=== PATIENT | female | born 1985 ===

== ENCOUNTER 2025-01-21 16:02 | Emergency (ER) | payer OTHER, SELFPAY ==
--- NOTE | ~2025-01-21 | CT_ITS ---
CLINICAL HISTORY: left ureteral stone CT abdomen and pelvis without contrast Comparison: None Findings: The lung bases are clear. Gallbladder is contracted. No definite cholelithiasis. No biliary ductal dilatation. Unenhanced liver, spleen, pancreas and adrenal glands within normal limits. 2.5 cm stone in upper pole of the left kidney. 1 mm punctate stone in midpole of the left kidney and of the right kidney. Mild left hydronephrosis. No stones along the course of the left ureter. No perinephric Stranding. No bowel obstruction, pneumoperitoneum, or pneumatosis. Appendix not identified. No pericecal inflammatory changes. No free fluid. Uterus and urinary bladder within normal limits. 3.1 cm left ovarian cyst. Abdominal aorta normal in size. Small fat containing umbilical hernia. No acute fracture. IMPRESSION: 1. Mild left hydronephrosis. No obstructing ureteral stone. 2. Minimal punctate nonobstructing renal stones bilaterally. 3. Left renal and left ovarian cysts as described. This document has been electronically signed by: Bettina Pascual MD on 01/21/2025 21:38:12
--- NOTE | ~2025-01-21 | US_ITS ---
CLINICAL HISTORY: GB, CBG, liver US abdomen limited Comparison: CT/SR - CT ABDOMEN PELVIS WO IV CON - 01/21/25 20:53 EDT Findings: The pancreas, aorta, and IVC is not visualized. The liver is normal in size and echotexture. There is no intrahepatic bile duct dilatation. The common duct is 3 mm in diameter. There is a 5 mm nonmobile echogenic focus with no acoustic shadowing in the gallbladder likely small gallbladder polyp. Gallbladder wall measures 2 mm. There is no sonographic Gutierrez sign. No free fluid in right upper quadrant IMPRESSION: Likely small gallbladder polyp. Otherwise study within normal limits. This document has been electronically signed by: Bettina Pascual MD on 01/21/2025 23:20:52
[2025-01-21 16:17] VITALS: BP 119/69; PULSE 107; RESP 20; TEMP 38.1; O2SAT 97; BMI 32.8
--- NOTE | 2025-01-21 16:18 | ED_ITS ---
HPI - General Adult General Chief complaint: Abdominal Pain Stated complaint: Kidney stone? Time Seen by Provider: 01/21/25 20:32 Source: patient Limitations: no limitations History of Present Illness ED Provider: Vanesa Galvan PA-C HPI narrative: 39-year-old female with a history of kidney stones presents with left-sided low back pain since earlier this afternoon. Pain is constant and nonradiating, feels similar to prior episodes of renal colic. Associated nausea, no known fevers. Denies dysuria, active vomiting, hematuria, diarrhea. Denies mechanism of injury where she could have strained her lower back. Related Data Previous Rx's ?Medication ?Instructions ?Recorded methocarbamol 750 mg tablet 750 mg PO Q8H PRN pain, moderate 01/22/25 #14 tabs Allergies Allergy/AdvReac Type Severity Reaction Status Date / Time morphine Allergy Rash Verified 01/21/25 16:23 Review of Systems 2 Review of Systems: Yes all other systems are reviewed and are negative Constitutional: Constitutional: Denies fatigue and Denies fever(s) Cardiovascular: Cardiovascular: Denies chest pain and Denies dyspnea Respiratory: Respiratory: Denies cough and Denies dyspnea Gastrointestinal: Gastrointestinal: Reports abdominal pain, Denies diarrhea, Reports nausea and Denies vomiting Genitourinary: Genitourinary: Denies hematuria, Denies dysuria and Reports flank pain Endocrine: Endocrine: Denies fatigue PMFSH Past Medical History Attestation statement: The following information was validated with the patient. Social History Social History Smoked in Last 30 Days: No Use of substances other than those prescribed or required for medical reasons: No Advance Directives: No Advance Directives Information Provided: No Patient : No Physical Exam ED Vital Signs: Vital Signs - 24 hr 01/21/25 16:17 01/21/25 20:30 01/21/25 21:29 Temperature 100.5 F H 97.6 F 98.1 F Pulse Rate 107 H 73 74 Respiratory Rate 20 16 16 Blood Pressure 119/69 97/55 L 108/56 L Pulse Oximetry 97 97 98 Oxygen Delivery Method Room Air Room Air Room Air 01/21/25 22:08 01/21/25 22:28 01/22/25 02:09 Temperature 97.7 F Pulse Rate 68 74 72 Respiratory Rate 16 16 13 Blood Pressure 104/56 L 110/66 90/53 L Pulse Oximetry 95 Oxygen Delivery Method Room Air BMI result Body Mass Index 32.8 Const Other: Alert Orientation/consciousness: patient oriented x3 Resp Effort & Inspection: normal respiratory effort Cardio Other: Normal peripheral perfusion GI Other: No palpable pain within the abdomen, soft, nondistended no guarding Back/Spine/Pelvis Other: Minimal CVA tenderness on the left Skin Other: Warm dry no rash Neuro General: patient oriented x3, gait normal, no focal motor deficits and CN's II- XI intact bilaterally Psych Other: Cooperative Course Course Course Narrative: 01/21/25 1618 SEE Fowler This is a Rapid Medical Examination (RME) performed by Berhane Matthews PA-C in triage. Full HPI, ROS, assessment and treatment plan per primary provider in the Main ED. Hx: 39 yo F here for eval of L flank pain PE/vitals: uncomfortable appearing, tachy, temp 100.5F Plan: labs, UA, tylenol given in triage Reevaluation(s) Reevaluation #1: At 9:46 p.m. on January 21 a sepsis focused exam was performed, patient was febrile earlier, she received Tylenol with a weight based IV fluids, lactic not elevated, ordering ceftriaxone Time: 21:46 Medications Administered Discontinued Medications Generic Name Dose Route Start Last Admin Trade Name Freq PRN Reason Stop Dose Admin Acetaminophen 975 mg 01/21/25 16:22 01/21/25 16:25 Acetaminophen 325 Mg Tablet PO 01/21/25 16:23 975 mg ONCE ONE Administration Acetaminophen 975 mg 01/21/25 20:33 01/21/25 20:53 Acetaminophen 325 Mg Tablet PO 01/21/25 20:34 Not Given ONCE ONE Ceftriaxone Sodium 2 gm 01/21/25 21:46 01/21/25 22:07 Ceftriaxone Sodium 2 Gm Vial IVPUSH 01/21/25 21:47 2 gm ONCE ONE Administration Sodium Chloride 2,289 mls @ 2,289 mls/hr 01/21/25 20:33 01/21/25 22:04 Ns 30 ml/kg infuse over 1 hr (2289 ml) 01/21/25 21:32 Infused IV Infusion .Q1H STA Ketorolac Tromethamine 15 mg 01/21/25 20:33 01/21/25 21:02 Ketorolac Tromethamine 15 Mg/Ml Vial IVPUSH 01/21/25 20:34 15 mg ONCE ONE Administration Methocarbamol 1,500 mg 01/21/25 23:42 01/22/25 00:30 Methocarbamol 750 Mg Tablet PO 01/21/25 23:43 1,500 mg ONCE ONE Administration Morphine Sulfate 4 mg 01/21/25 20:33 01/21/25 21:02 Morphine Sulfate 4 Mg/Ml Cartridge IVPUSH 01/21/25 20:34 4 mg ONCE ONE Administration Protocol Morphine Sulfate 4 mg 01/21/25 22:41 01/21/25 22:48 Morphine Sulfate 4 Mg/Ml Cartridge IVPUSH 01/21/25 22:42 4 mg ONCE ONE Administration Protocol Ondansetron HCl 4 mg 01/21/25 20:33 01/21/25 21:02 Ondansetron Hcl 4 Mg/2 Ml Vial IVPUSH 01/21/25 20:34 4 mg ONCE ONE Administration Medical Decision Making Medical Decision Making MDM Narrative: 39-year-old female with a history of kidney stones presents with left-sided low back pain since earlier this afternoon. Pain is constant and nonradiating, feels similar to prior episodes of renal colic. Associated nausea, no known fevers. Denies dysuria, active vomiting, hematuria, diarrhea. Denies mechanism of injury where she could have strained her lower back. Problem: Known kidney stones History: Per patient I have considered the following differential diagnoses: Lumbar strain, pyelonephritis, renal colic, UTI, biliary colic, cholecystitis, sepsis Plan: Screening labs including a urinalysis were obtained from triage. We will be ordering a CT scan of the abdomen and pelvis to rule out renal colic versus pyelonephritis, the patient does have some degree of CVA tenderness on the left. Urine is yet to be collected, other screening labs are completed, she has elevation of liver function tests, however this does not fit her clinical picture her distribution of discomfort is within the left lower abdomen/flank. She may require ultrasound of the right upper abdomen. We will be giving IV fluids Zofran and morphine Toradol. To note the patient did have a low-grade temperature out in triage, adding blood cultures, lactic, starting ceftriaxone. I have independently reviewed the following tests: Labs: No leukocytosis, left shift noted, not anemic, no electrolyte abnormality, lactic 0.7, not , LFTs elevated, unclear if this is her baseline, I have no old lab studies to compare to. Urine not infected, no hematuria Ultrasound right upper quadrant:The pancreas, aorta, and IVC is not visualized. The liver is normal in size and echotexture. There is no intrahepatic bile duct dilatation. The common duct is 3 mm in diameter. There is a 5 mm nonmobile echogenic focus with no acoustic shadowing in the gallbladder likely small gallbladder polyp. Gallbladder wall measures 2 mm. There is no sonographic Gutierrez sign. No free fluid in right upper quadrant IMPRESSION: Likely small gallbladder polyp. Otherwise study within normal limits. CT abdomen and pelvis:MPRESSION: 1. Mild left hydronephrosis. No obstructing ureteral stone. 2. Minimal punctate nonobstructing renal stones bilaterally. 3. Left renal and left ovarian cysts as described. Lab Data 01/21/25 16:33 01/21/25 16:33 Labs: Lab Results 01/21/25 01/21/25 01/21/25 Range/Units 16:33 21:14 21:33 WBC 7.2 (4.8-10.8) X10*3/uL RBC 4.17 L (4.20-5.50) X10*6/uL Hgb 12.2 (12.0-16.0) g/dl Hct 35.8 L (37.0-47.0) % MCV 85.9 (80.0-98.0) fL MCH 29.3 (27.0-33.0) pg MCHC 34.1 (31.0-35.0) g/dl RDW 12.7 (11.0-16.0) % Plt Count 206 (160-400) X10*3/uL MPV 9.7 (9.4-12.3) fL Immature Gran % (Auto) 0.4 (0.0-0.4) % Neut % (Auto) 74.1 H (45-73) % Lymph % (Auto) 17.2 L (20-40) % [place] % (Auto) 7.4 (2-11) % Eos % (Auto) 0.3 (0-4) % Baso % (Auto) 0.6 (0-2) % Lymph # (Auto) 1.2 (1.2-4.9) X10*3/uL [place] # (Auto) 0.5 (0.1-1.2) X10*3/uL Eos # (Auto) 0.0 (0.0-0.4) X10*3/uL Baso # (Auto) 0.0 (0.0-0.2) X10*3/uL Abs Immat Gran (auto) 0.03 (0.00-0.03) X10*3/uL Absolute Neuts (auto) 5.3 (2.0-8.3) x10*3/uL Absolute Nucleated RBC 0.000 (0.0-0.012) X10*3/uL Nucleated RBC % (auto) 0.0 (0.0-0.2) /100WBC Sodium 139 (135-145) mmol/L Potassium 3.7 (3.3-5.1) mmol/L Chloride 107 (96-108) mmol/L Carbon Dioxide 24 (22-29) mmol/L Anion Gap 12 (12-20) BUN 13 (9-16) mg/dL Creatinine 0.85 (0.5-1.4) mg/dL Estim Creat Clear Calc 81.1 Estimated GFR > 60 Random Glucose 74 (60-115) mg/dL Lactic Acid 0.7 (0.5-2.0) mmol/L Calcium 9.2 (8.4-10.2) mg/dL Magnesium 1.7 (1.6-2.6) mg/dL Total Bilirubin 2.0 H (0.0-1.0) mg/dL Direct Bilirubin 0.4 (0.0-0.5) mg/dL AST 56 H (5-31) U/L ALT 35 H (0-31) U/L Alkaline Phosphatase 139 H (39-117) U/L Total Protein 6.6 (6.5-8.0) g/dL Albumin 4.1 (3.5-5.0) g/dL Lipase 49 (8-78) U/L Beta HCG, Quant < 2 mIU/mL Urine Color Yellow Urine Appearance Clear Urine pH 6.0 (5.0-9.0) Ur Specific [place] <= 1.005 (1.005-1.025) Urine Protein Negative (Neg-Trace) mg/dL Urine Glucose (UA) Negative (Negative) mg/dL Urine Ketones Negative (Negative) mg/dL Urine Blood Negative (Negative) Urine Nitrite Negative (Negative) Ur Leukocyte Esterase Negative (Negative) Discharge Plan Discharge Clinical Impression: Acute left-sided back pain Patient Disposition: Home, Self-Care Instructions: Back Pain (ED) Additional Instructions: You are being treated for left-sided back pain. See home care instructions. Continue to use your home gabapentin. I am also prescribing a muscle relaxant, this will cause drowsiness do not drive or operate machinery. To note all of your screening labs were normal, including a urinalysis, there was no blood, it is not infected. You had a CT scan of the abdomen and pelvis, that was negative. You had an ultrasound of the abdomen that was negative. There was no acute intra-abdominal pathology as cause for your symptoms. Continue to follow up with your primary care provider as needed. Prescriptions: New methocarbamol 750 mg tablet 750 mg PO Q8H PRN (Reason: pain, moderate) Qty: 14 0RF Interventions: ED Discharge Assessment Last Done: 01/22/25 03:49 Discharge Date/Time: 01/22/25 03:50 Print Language: Chinese
[2025-01-21] MEDS: Acetaminophen 325 MG TABLET 975 MG PO (16:25)
[2025-01-21 16:38] LABS: MANUAL DIFF FLAG NO
[2025-01-21 16:40] LABS: Basophils Percent Auto 0.6 % (0-2); Eosinophils Percent Auto 0.3 % (0-4); Hematocrit 35.8 % (37.0-47.0); Hemoglobin 12.2 g/dl (12.0-16.0); Imm Gran Abs Auto 0.03 X10*3/uL (0.00-0.03); Imm Gran Pct Auto 0.4 % (0.0-0.4); Lymphocytes Absolute Auto 1.2 X10*3/uL (1.2-4.9); Lymphocytes Percent Auto 17.2 % (20-40); Mean Corpuscular HGB Conc 34.1 g/dl (31.0-35.0); Mean Corpuscular Hemoglobin 29.3 pg (27.0-33.0); Mean Corpuscular Volume 85.9 fL (80.0-98.0); Mean Platelet Volume 9.7 fL (9.4-12.3); Monocytes Absolute Auto 0.5 X10*3/uL (0.1-1.2); Monocytes Percent Auto 7.4 % (2-11); Neutrophils Absolute Auto 5.3 x10*3/uL (2.0-8.3); Neutrophils Percent Auto 74.1 % (45-73); Platelet Count 206 X10*3/uL (160-400); Red Blood Count 4.17 X10*6/uL (4.20-5.50); Red Cell Distribution Width 12.7 % (11.0-16.0); White Blood Count 7.2 X10*3/uL (4.8-10.8)
[2025-01-21 16:56] LABS: Alanine Aminotransferase 35 U/L (0-31); Albumin Level 4.1 g/dL (3.5-5.0); Anion Gap 12 (12-20); Aspartate Amino Transferase 56 U/L (5-31); Blood Urea Nitrogen 13 mg/dL (9-16); Calcium 9.2 mg/dL (8.4-10.2); Carbon Dioxide 24 mmol/L (22-29); Chloride 107 mmol/L (96-108); Creatinine Clr Calc Pharmacy 81.1; Estimated Glomerular Filt Rate > 60; Glucose Random 74 mg/dL (60-115); Lipase 49 U/L (8-78); Magnesium 1.7 mg/dL (1.6-2.6); Potassium 3.7 mmol/L (3.3-5.1); Sodium 139 mmol/L (135-145); Total Protein 6.6 g/dL (6.5-8.0)
[2025-01-21 17:02] LABS: Alkaline Phosphatase 139 U/L (39-117); HCG Quantitative < 2 mIU/mL
[2025-01-21 20:30] VITALS: BP 97/55; PULSE 73; RESP 16; TEMP 36.4; O2SAT 97
--- NOTE | 2025-01-21 20:54 | PC.NURSE ---
iv established at this time, pt was taken to ct scan upon return to medicate.
[2025-01-21] MEDS: SODIUM CHLORIDE 2289 ML IV (21:01)
[2025-01-21] MEDS: Ketorolac Tromethamine 15 MG/ML VIAL IVPUSH (21:02)
[2025-01-21] MEDS: Morphine Sulfate 4 MG/ML CARTRIDGE IVPUSH ×2 (21:02→22:48)
[2025-01-21] MEDS: ondansetron HCL 4 MG/2 ML VIAL IVPUSH (21:02)
[2025-01-21 21:29] VITALS: BP 108/56; PULSE 74; RESP 16; TEMP 36.7; O2SAT 98
[2025-01-21 21:41] LABS: Appearance Urine Clear; Color Urine Yellow; Glucose Urine UA Negative (Negative); Leukocyte Esterase Urine Negative (Negative); Nitrite Urine Negative (Negative); Specific Gravity - Urine <= 1.005 (1.005-1.025); Urine Blood Negative (Negative); Urine Ketones Negative (Negative); Urine Protein Negative (Neg-Trace)
[2025-01-21 21:44] LABS: Lactic Acid 0.7 mmol/L (0.5-2.0)
[2025-01-21] MEDS: cefTRIAXone sodium 2 GM VIAL IVPUSH (22:07)
[2025-01-21 22:08] VITALS: BP 104/56; PULSE 68; RESP 16
[2025-01-21 22:28] VITALS: BP 110/66; PULSE 74; RESP 16
[2025-01-21 22:51] LABS: Bilirubin Direct 0.4 mg/dL (0.0-0.5)
--- NOTE | 2025-01-21 23:34 | PC.NURSE ---
pa aware pain not improving with meds given per mar.
[2025-01-22] MEDS: methocarbamoL 750 MG TABLET 1500 MG PO (00:30)
[2025-01-22 02:09] VITALS: BP 90/53; PULSE 72; RESP 13; TEMP 36.5; O2SAT 95
[2025-01-22 03:32] VITALS: BP 92/63; PULSE 72; RESP 15; TEMP 36.5; O2SAT 95
[2025-01-22 03:49] VITALS: BP 92/63; PULSE 72; RESP 15; TEMP 36.5; O2SAT 95
== END 2025-01-22 03:50 | disposition home or self-care (01) ==
PROVIDERS: Physician Assistant Medical; Emergency Provider Emergency Medicine; PCP Internal Medicine
DX: M54.50 Low back pain, unspecified (principal); R11.0 Nausea; Z87.442 Personal history of urinary calculi
CPT/HCPCS: 36415; 74176; 76705; 80053; 81003; 82248; 83605; 83690; 83735; 84702; 85025; 87040; 96361; 96374; 96375; 96376; 99284; 99285; J0696; J1885; J2270; J2405

== ENCOUNTER → 2025-01-21 20:33 | Outpatient (BNV) | payer MEDICAID, SELFPAY | PROVIDERS: Visit Provider Specialist | DX: N20.0 Calculus of kidney (principal) | CPT/HCPCS: 74176 ==

== ENCOUNTER 2025-06-07 13:50 | Inpatient (IN) | payer OTHER, SELFPAY ==
--- NOTE | ~2025-06-07 | CT_ITS ---
CLINICAL HISTORY: L flank pain, hx of kidney stones CT abdomen and pelvis without contrast Comparison: CT/SR - CT ABDOMEN PELVIS WO IV CON - 01/21/25 20:53 EDT Findings: Bibasilar dependent subsegmental atelectasis. Gallstone within the proximal common bile duct, 0.3 cm, axial image number 18 of 74 series 3 and coronal image number 26 of 53. Left renal upper pole cortical low-attenuation lesion, 2.5 cm. Right renal interpolar region 0.1 cm nonobstructing nephrolith. Left renal interpolar region 0.1 cm nonobstructing nephrolith. There is diffuse fecal material seen throughout the colon. The appendix is within normal limits. The uterus is within normal limits. Left ovarian low-attenuation lesion, 3.4 cm. Small amount of free fluid in the cul-de-sac. The bones are intact. Right lower quadrant subcutaneous emphysematous changes; iatrogenic from prior injection IMPRESSION: 1. Common bile duct gallstone, 0.3 cm, located in the proximal common bile duct. 2. Left renal upper pole cortical cyst, 2.5 cm. 3. Left ovarian cyst, 3.4 cm, with small amount of free fluid in the cul-de-sac. 4. Constipation. 5. Bilateral interpolar region 0.1 cm nonobstructing nephroliths. This document has been electronically signed by: Gavino Roberts MD on 06/07/2025 18:58:58
--- NOTE | ~2025-06-07 | FL_ITS ---
EXAMINATION: FL GUIDANCE ONLY HISTORY: ERCP COMPARISON: Correlation is made with a CT of the abdomen with contrast dated 06/07/2025. TECHNIQUE: Fluoroscopy time: 1 minute, 27.5 seconds. Cumulative Dose: 16.786 mGy. DAP: 7.3016 Gycm2 Images: 7. FINDINGS: Fluoroscopic spot films from an ERCP demonstrate a normal caliber common bile duct. No filling defects are seen on these images. A balloon sweep was made. FL/FL guidance in OR IMPRESSION: Fluoroscopy during procedure. Please see procedure report for additional information. Electronically signed by: Devendra Mendez MD 06/10/2025 07:56 AM EDT
--- NOTE | 2025-06-07 14:15 | ED.GENADULT ---
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 Diaz HPI narrative: 40-year-old female presented with left flank pain started since last night pain has been constant similar to her prior episode of kidney stones, no hematuria, no dysuria, no frequency urination, patient require several lithotripsy in the past for kidney stones, otherwise no nausea, no vomiting, no fever. No vaginal discharge, no vaginal bleeding, declined being . Related Data Previous Rx's ?Medication ?Instructions ?Recorded methocarbamol 750 mg tablet 750 mg PO Q8H PRN pain, moderate 01/22/25 #14 tabs Allergies Allergy/AdvReac Type Severity Reaction Status Date / Time morphine Allergy Rash Verified 06/07/25 14:18 Review of Systems Review of Systems: All other systems are reviewed and are negative Constitutional: Reports as per HPI and Reports no additional constitutional complaints Eyes: Reports as per HPI and Reports no additional eye complaints Reports system reviewed and no additional complaints, except as documented Cardiovascular: Reports as per HPI and Reports no additional cardiovascular complaints Respiratory: Reports as per HPI and Reports no additional respiratory complaints Gastrointestinal: Reports as per HPI and Reports no additional gastrointestinal complaints Genitourinary: Reports no additional female genitourinary complaints Musculoskeletal: Reports no additional musculoskeletal complaints Skin/Breast: Reports system reviewed and no additional complaints, except as docu Psychiatric: Reports no additional psychiatric complaints Endocrine: Reports no additional endocrine complaints Hematologic/Lymphatic: Reports no additional hematologic/lymphatic complaints Allergic/Immunologic: Reports no additional allergic/immunologic complaints Reports system reviewed and no additional complaints, except as documented and Reports Abnormal speech present [facility] Social History Social History Patient Tobacco Use Status: Never used Tobacco Smoked in Last 30 Days: Yes Advance Directives: No Advance Directives Information Provided: No Do you have a plan to hurt others: No Plan Nutrition Risks: No Nutritional Risk Patient : No Physical Exam ED Vital Signs: Vital Signs - 24 hr 06/07/25 14:16 06/07/25 15:55 06/07/25 18:00 Temperature 97.7 F 98 F Pulse Rate 93 84 74 Respiratory Rate 20 16 16 Blood Pressure 109/56 L 112/69 101/59 L Pulse Oximetry 98 97 97 Oxygen Delivery Method Room Air Room Air Room Air BMI result Body Mass Index 27.1 Vital signs have been reviewed and appear to be correct. Blood pressure elevated. Heart rate normal. Respiratory rate normal. Temperature normal. Oxygen saturation normal. Appearance: Alert. Oriented X3. No acute distress. Head: Normal external exam. Normocephalic. Atraumatic. No Mackenzie signs noted. No raccoon eyes noted Eyes: PERRLA. EOMI. Conjunctiva and sclera normal. Eyelids normal. ENT: TM's Normal. Pharynx normal. Uvula midline. Moist mucous membranes. No trismus noted. No drooling noted. No muffled voice noted. Neck: Normal inspection. Neck supple. FROM. No adenopathy. Thyroid Normal. No meningeal signs. No neck mass noted. CVS: Normal heart rate and rhythm. Heart sound normal. No murmurs noted. Pulses normal throughout. Respiratory: No respiratory distress. Painless inspiration. Breath sounds normal. No wheezes/rales/rhonchi noted. Chest nontender. No accessory muscle usage noted or decreased air movement noted. Abdomen: Soft and nontender. Bowel sounds normal in all 4 quadrants. No distention noted. No organomegaly noted. No visible injury noted. Back: Left CVA tenderness. Full range of motion noted. Skin: Skin warm and dry. Normal skin color. Normal skin turgor. No rashes/lesions/lacerations noted. Extremities: No lower extremity edema. Extremities exhibit normal range of motion. Extremities nontender. Neuro: Oriented X 3. Cranial nerve exam: II-XII are grossly intact No motor deficit. No sensory deficit. Reflexes normal. Course Course Course Narrative: This is a rapid medical exam performed by Dyan Stewart NP: Additional HPI, ROS, PE not included below will be deferred to primary provider. Patient is a 40y/o Persian speaking female presenting to the ED with complaint of left flank pain radiating to back and groin since last night. History of kidney stones, states feels the same. Denies hematuria. Plan: labs, UA Reevaluation(s) Reevaluation #1: CT abdomen pelvis is consistent with choledocholithiasis, case discussed discussed with Dr. Mazzucco who will admit the patient for further surgical evaluation. Time: 19:36 Medications Administered Discontinued Medications Generic Name Dose Route Start Last Admin Trade Name Kiana PRN Reason Stop Dose Admin Hydromorphone HCl 1 mg 06/07/25 16:07 06/07/25 16:27 Hydromorphone Hcl 1 Mg/Ml Syringe IVPUSH 06/07/25 16:08 1 mg ONCE ONE Administration Protocol Hydromorphone HCl 1 mg 06/07/25 18:36 06/07/25 18:42 Hydromorphone Hcl 1 Mg/Ml Syringe IVPUSH 06/07/25 18:37 1 mg ONCE ONE Administration Protocol Lactated Ringer's 1,000 mls @ 999 mls/hr 06/07/25 16:15 06/07/25 18:24 Lr IV 06/07/25 17:15 Infused .Q1H1M BRIAN Infusion Ketorolac Tromethamine 30 mg 06/07/25 16:07 06/07/25 16:27 Ketorolac Tromethamine 30 Mg/Ml Vial IVPUSH 06/07/25 16:08 30 mg ONCE ONE Administration Medical Decision Making Differential Diagnosis Differential Diagnoses: The differential diagnosis associated with the presentation includes (Kidney stone, colitis, diverticulitis, acute pancreatitis, acute cholecystitis, cholelithiasis, electrolyte derangement, severe anemia, UTI, .) Admission/Observation Consideration of admission/observation: Escalation of care including admission/observation considered Lab Data MDM Lab Attestation statement: I reviewed the patient's lab results. 06/07/25 15:43 06/07/25 15:43 Labs: Lab Results 06/07/25 06/07/25 Range/Units 15:43 15:58 WBC 8.0 (4.8-10.8) X10*3/uL RBC 4.55 (4.20-5.50) X10*6/uL Hgb 13.2 (12.0-16.0) g/dl Hct 39.0 (37.0-47.0) % MCV 85.7 (80.0-98.0) fL MCH 29.0 (27.0-33.0) pg MCHC 33.8 (31.0-35.0) g/dl RDW 12.6 (11.0-16.0) % Plt Count 280 D (160-400) X10*3/uL MPV 10.1 (9.4-12.3) fL Immature Gran % (Auto) 0.3 (0.0-0.4) % Neut % (Auto) 67.2 (45-73) % Lymph % (Auto) 26.8 (20-40) % [place] % (Auto) 4.3 (2-11) % Eos % (Auto) 0.9 (0-4) % Baso % (Auto) 0.5 (0-2) % Lymph # (Auto) 2.1 (1.2-4.9) X10*3/uL [place] # (Auto) 0.3 (0.1-1.2) X10*3/uL Eos # (Auto) 0.1 (0.0-0.4) X10*3/uL Baso # (Auto) 0.0 (0.0-0.2) X10*3/uL Abs Immat Gran (auto) 0.02 (0.00-0.03) X10*3/uL Absolute Neuts (auto) 5.4 (2.0-8.3) x10*3/uL Absolute Nucleated RBC 0.000 (0.0-0.012) X10*3/uL Nucleated RBC % (auto) 0.0 (0.0-0.2) /100WBC Sodium 141 (135-145) mmol/L Potassium 4.9 D (3.3-5.1) mmol/L Chloride 110 H (96-108) mmol/L Carbon Dioxide 24 (22-29) mmol/L Anion Gap 12 (12-20) BUN 10 (9-16) mg/dL Creatinine 0.75 (0.5-1.4) mg/dL Estim Creat Clear Calc 89.6 Estimated GFR > 60 Random Glucose 93 (60-115) mg/dL Calcium 9.4 (8.4-10.2) mg/dL Total Bilirubin 2.4 H (0.0-1.0) mg/dL AST 20 (5-31) U/L ALT 25 (0-31) U/L Alkaline Phosphatase 113 (39-117) U/L Total Protein 7.2 (6.5-8.0) g/dL Albumin 4.5 (3.5-5.0) g/dL Beta HCG, Quant < 2 mIU/mL Urine Color Yellow Urine Appearance Clear Urine pH 7.5 (5.0-9.0) Ur Specific [place] 1.025 (1.005-1.025) Urine Protein Trace (Neg-Trace) mg/dL Urine Glucose (UA) Negative (Negative) mg/dL Urine Ketones Negative (Negative) mg/dL Urine Blood Negative (Negative) Urine Nitrite Negative (Negative) Ur Leukocyte Esterase Negative (Negative) Independent Interpretation I performed an independent interpretation of an: CT Scan (Abdomen pelvis: Common bile duct gallstone, 0.3 cm, located in the proximal common bile duct. 2. Left renal upper pole cortical cyst, 2.5 cm. 3. Left ovarian cyst, 3.4 cm, with small amount of free fluid in the cul-de-sac. 4. Constipation. 5. Bilateral interpolar region 0.1 cm nonobstructing nephrol) Radiology Impression Discussion of test interpretation with radiology: I have reviewed the radiologist's reading. Discharge Plan Discharge Clinical Impression: Choledocholithiasis Patient Disposition: Admitted As Inpatient Print Language: Persian
[2025-06-07 14:16] VITALS: BP 109/56; PULSE 93; RESP 20; TEMP 36.5; O2SAT 98; BMI 27.1
[2025-06-07 15:55] VITALS: BP 112/69; PULSE 84; RESP 16; TEMP 36.6; O2SAT 97
[2025-06-07 15:56] LABS: MANUAL DIFF FLAG NO
--- NOTE | 2025-06-07 15:59 | PC.NURSE ---
In person cancer program director at bedside with Dr. Diaz
--- NOTE | 2025-06-07 16:01 | PC.NURSE ---
Pt awake and alert, appears uncomfortable. Stating pain to left flank, hx of kidney stones requiring surgical intervention in past. X2 episodes of emesis since last night. +Nausea at this time. LMP at end of last month. Plan for IV placement at this time per MD.
[2025-06-07 16:05] LABS: Hematocrit 39.0 % (37.0-47.0); Hemoglobin 13.2 g/dl (12.0-16.0); Imm Gran Abs Auto 0.02 X10*3/uL (0.00-0.03); Imm Gran Pct Auto 0.3 % (0.0-0.4); Lymphocytes Absolute Auto 2.1 X10*3/uL (1.2-4.9); Mean Corpuscular HGB Conc 33.8 g/dl (31.0-35.0); Mean Corpuscular Hemoglobin 29.0 pg (27.0-33.0); Mean Corpuscular Volume 85.7 fL (80.0-98.0); NRBC Abs Auto 0.000 X10*3/uL (0.0-0.012); NRBC Pct Auto 0.0 /100WBC (0.0-0.2); Platelet Count 280 X10*3/uL (160-400); Red Blood Count 4.55 X10*6/uL (4.20-5.50); White Blood Count 8.0 X10*3/uL (4.8-10.8)
[2025-06-07 16:23] LABS: Appearance Urine Clear; Glucose Urine UA Negative (Negative); PH 7.5 (5.0-9.0); Specific Gravity - Urine 1.025 (1.005-1.025)
[2025-06-07] MEDS: Lactated Ringers 1,000 ML 999 ML IV (16:27)
[2025-06-07 16:36] LABS: Alanine Aminotransferase 25 U/L (0-31); Albumin Level 4.5 g/dL (3.5-5.0); Anion Gap 12 (12-20); Aspartate Amino Transferase 20 U/L (5-31); Blood Urea Nitrogen 10 mg/dL (9-16); Calcium 9.4 mg/dL (8.4-10.2); Carbon Dioxide 24 mmol/L (22-29); Chloride 110 mmol/L (96-108); Creatinine Clr Calc Pharmacy 89.6; Estimated Glomerular Filt Rate > 60; Potassium 4.9 mmol/L (3.3-5.1); Sodium 141 mmol/L (135-145); Total Protein 7.2 g/dL (6.5-8.0)
[2025-06-07 16:50] LABS: Alkaline Phosphatase 113 U/L (39-117)
[2025-06-07 18:00] VITALS: BP 101/59; PULSE 74; RESP 16; O2SAT 97
--- NOTE | 2025-06-07 19:04 | PC.NURSE ---
Temperature Control Inspector called at this time for Dr. Diaz to review CT results
[2025-06-07] MEDS: oxyCODONE HCl Immed Release 5 MG TABLET PO (19:54)
--- NOTE | 2025-06-07 19:55 | PC.NURSE ---
No D5LR on floor, nursing supervisior paged
[2025-06-07] MEDS: Dextrose 5 % and Lactated Ring 1,000 ML 125 ML IVCONT (20:08)
[2025-06-07 21:33] VITALS: BP 96/52; PULSE 74; RESP 16; TEMP 36.7; O2SAT 98
--- NOTE | 2025-06-08 00:35 | PC.NURSE ---
pt medicated per MAR for pain
--- NOTE | 2025-06-08 03:30 | HO.NURTONUR ---
pt presents to ED w/ c/o L flank/abd pain with n/v. CT abd/pelvis: CBD gallstone. ADMIT: choledocholithiasis NPO. 20g IV RAC. D5LR infusing at 125mls/hr. GI consult. Surgery. primarily [place] Leonean speaking. calm and cooperative with care. A/O x4, ambulates independently.
[2025-06-08] MEDS: Dextrose 5 % and Lactated Ring 1,000 ML 125 ML IVCONT ×2 (05:16→13:17)
[2025-06-08] MEDS: oxyCODONE HCl Immed Release 5 MG TABLET PO ×3 (05:21→19:25)
[2025-06-08 05:22] VITALS: BP 92/49; PULSE 73; RESP 20; TEMP 36.8; O2SAT 96
--- NOTE | 2025-06-08 07:59 | PM.HPGS ---
History of Present Illness History of Present Illness Date of Service: 06/08/25 <Payal Hubbard PA-C - Last Filed: 06/08/25 08:12> 06/11/25 <Ivan Momin MD - Last Filed: 06/11/25 15:59> Chief complaint: Choleducholithiasis <Payal Hubbard PA-C - Last Filed: 06/08/25 08:12> Narrative: Tiarra Hewitt is a 40 year old female with PMH of migraines, kidney stones, asthma presenting with RUQ abd pain. She reports that Sunday night she developed left sided abd pain and back pain that spread across her entire abdomen and then eventually settled in her RUQ. This was associated with nausea, vomiting and chills. She reports she has a history of kidney stones and it felt similar to that pain. She therefore presented to the ED for evaluation. Work up included CBC, BMP, LFTs which was significant for elevated bilirubin of 2.4. No leukocytosis. CT scan abd pelvis was obtained which showed a distended gallbladder and a stone in the proximal CBD. She denies prior episodes of RUQ pain after eating. She continues to have abd pain this morning. She has a surgical history of 2 C sections and diagnostic laparoscopy for hemorrhagic ovarian cyst. <Payal Hubbard PA-C - Last Filed: 06/08/25 08:12> Review of Systems Review of Systems: Yes all other systems are reviewed and are negative <Payal Hubbard PA-C - Last Filed: 06/08/25 08:12> [facility] Surgical History Surgical History: Surgical History Hx of cholecystectomy History of ERCP H/O laparoscopy History of <Payal Hubbard PA-C - Last Filed: 06/08/25 08:12> Social History Social History: Social History Household Members: Children Housing: House Do you presently have visiting nurse or other home services: No Patient Tobacco Use Status: Current everyday Tobacco user service: No <CARLOS Cowan Last Filed: 06/08/25 08:12> Meds Allergies/Adverse reactions: Allergies Allergy/AdvReac Type Severity Reaction Status Date / Time morphine Allergy Rash Verified 06/07/25 14:18 <Payal uHbbard PA-C - Last Filed: 06/08/25 08:12> Active Medications: Current Medications Hydromorphone HCl (Hydromorphone Hcl 0.5 Mg/0.5 Ml Syringe) 0.5 mg IVPUSH Q3H PRN; Protocol PRN Reason: Pain, Severe (Pain Scale 7-10) Last Admin: 06/08/25 06:44 Dose: 0.5 mg Acetaminophen (Ofirmev) 1,000 mg in 100 mls @ 400 mls/hr IV Q6H PRN PRN Reason: Pain, Mild (Pain Scale 1-3) Last Infusion: 06/08/25 01:45 Dose: Infused Dextrose/Lactated Ringer's (D5lr) 1,000 mls @ 125 mls/hr IVCONT .Q8H [facility] Last Admin: 06/08/25 05:16 Dose: 125 mls/hr Piperacillin Sod/Tazobactam (Sod 3.375 gm/ Sodium Chloride) 50 mls @ 100 mls/hr IV Q6H [facility] Last Infusion: 06/08/25 02:44 Dose: Infused Ondansetron HCl (Ondansetron Hcl 4 Mg/2 Ml Vial) 4 mg IVPUSH QID PRN PRN Reason: Nausea Oxycodone HCl (Oxycodone Hcl Immed Release 5 Mg Tablet) 5 mg PO Q6H PRN PRN Reason: Pain, Moderate(Pain Scale 4-6) Last Admin: 06/08/25 05:21 Dose: 5 mg Sodium Chloride (0.9 % Sodium Chloride Flush 3 Ml Syringe) [facility] Last Admin: 06/08/25 00:00 Dose: Not Given Zolpidem Tartrate (Zolpidem Tartrate 5 Mg Tablet) 5 mg PO BEDTIME PRN PRN Reason: Insomnia <Payal Hubbard PA-C - Last Filed: 06/08/25 08:12> Home medications: Home Medications ?Medication ?Instructions ?Recorded ?Confirmed ?Last Taken ?Type cetirizine 10 mg tablet 10 mg PO DAILY 06/08/25 06/08/25 Unknown History cholecalciferol (vitamin D3) 25 25 mcg PO DAILY 06/08/25 06/08/25 Unknown History mcg (1,000 unit) capsule (Vitamin D3) gabapentin 300 mg capsule 600 mg PO TID 06/08/25 06/08/25 Unknown History lorazepam 0.5 mg tablet 0.5 mg PO BID PRN Anxiety 06/08/25 06/08/25 Unknown History sertraline 100 mg tablet 200 mg PO DAILY depressive disorder 06/08/25 06/08/25 Unknown History tirzepatide (weight loss) 10 10 mg subcut FR 06/08/25 06/09/25 06/05/25 09:00 History mg/0.5 mL subcutaneous pen injector (Zepbound) zolpidem 10 mg tablet 10 mg PO BEDTIME insomnia 06/08/25 06/08/25 Unknown History <CARLOS Cowan Last Filed: 06/08/25 08:12> Physical Exam Vital Signs: Vital Signs: Last Vital Signs Temp 98.2 F 06/08/25 05:22 Pulse 73 06/08/25 05:22 Resp 20 06/08/25 05:22 BP 92/49 L 06/08/25 05:22 Pulse Ox 96 06/08/25 05:22 O2 Del Method Room Air 06/08/25 05:22 BMI result Body Mass Index 27.1 <CARLOS Cowan Last Filed: 06/08/25 08:12> Const: General: comfortable, no acute distress and alert <CARLOS Cowan Last Filed: 06/08/25 08:12> Orientation/consciousness: patient oriented x3 <CARLOS Cowan Last Filed: 06/08/25 08:12> Eyes: Sclerae: scleral abnormal (mild icteric) <CARLOS Cowan Last Filed: 06/08/25 08:12> Resp: Effort & Inspection: normal respiratory effort <CARLOS Cowan Last Filed: 06/08/25 08:12> GI: Other: corpulent abdomen soft, nondistended tender in the RUQ <CARLOS Cowan Last Filed: 06/08/25 08:12> Inspection: No distended <Payal Hubbard PA-C Isma Last Filed: 06/08/25 08:12> Palpation (GI): no guarding <Payal Hubbard PA-C Isma Last Filed: 06/08/25 08:12> Percussion: Yes normal to percussion <Payal Hubbard PA-C Isma Last Filed: 06/08/25 08:12> Abdomen image:  1. [place] 2. laparoscopy scars 3. 4. <Payal Hubbard PA-C Isma Last Filed: 06/08/25 08:12> Skin: General skin exam: no rashes or lesions noted <Payal Hubbard PA-C Isma Filed: 06/08/25 08:12> Neuro: General: patient oriented x3 and moves all extremities <Payal Hubbard PA-C Isma Filed: 06/08/25 08:12> Results Results Labs: Short CBC 06/07/25 Range/Units 15:43 WBC 8.0 (4.8-10.8) X10*3/uL Hgb 13.2 (12.0-16.0) g/dl Hct 39.0 (37.0-47.0) % Plt Count 280 D (160-400) X10*3/uL BMP 06/07/25 15:43 Sodium 141 Potassium 4.9 D Chloride 110 H Carbon Dioxide 24 BUN 10 Creatinine 0.75 Calcium 9.4 Liver Function 06/07/25 Range/Units 15:43 Total Bilirubin 2.4 H (0.0-1.0) mg/dL AST 20 (5-31) U/L ALT 25 (0-31) U/L Alkaline Phosphatase 113 (39-117) U/L Albumin 4.5 (3.5-5.0) g/dL Urine 06/07/25 Range/Units 15:58 Urine Color Yellow Urine Appearance Clear Urine pH 7.5 (5.0-9.0) Ur Specific [place] 1.025 (1.005-1.025) Urine Protein Trace (Neg-Trace) mg/dL Urine Glucose (UA) Negative (Negative) mg/dL <CARLOS Cowan Last Filed: 06/08/25 08:12> Abdomen CT scan report/results: report reviewed and image reviewed <Payal Hubbard PA-C - Last Filed: 06/08/25 08:12> Additional studies: labs reviewed <Payal Hubbard PA-C - Last Filed: 06/08/25 08:12> Assessment and Plan (1) Choledocholithiasis: Status: Acute <Payal Hubbard PA-C - Last Filed: 06/08/25 08:12> 40 year female with PMH of kidney stones, asthma, migraines presenting with RUQ abd pain found to elevated bilirubin and have CBD stone on CT scan. She has been admitted to the surgical service for further treatment of this choledocolithiasis. She is clinically appearing well but is tender in the RUQ. GI consult has been obtained for evaluation and ERCP. Keep NPO, on IVF, PRN analgesics. She has no further gallstones on CT scan. Possible ABD US to evaluate for further stones or sludge prior to proceeding with lap mirlande for prevention of recurrence unless she has persistent RUQ pain suggestive of acute cholecystitis. Will await GI eval. <Payal Hubbard PA-C - Last Filed: 06/08/25 08:12> 40 year female with PMH of kidney stones, asthma, migraines presenting with RUQ abd pain found to elevated bilirubin and have CBD stone on CT scan. She has been admitted to the surgical service for further treatment of this choledocolithiasis. She is clinically appearing well but is tender in the RUQ. GI consult has been obtained for evaluation and ERCP. Keep NPO, on IVF, PRN analgesics. She has no further gallstones on CT scan. Possible ABD US to evaluate for further stones or sludge prior to proceeding with lap mirlande for prevention of recurrence unless she has persistent RUQ pain suggestive of acute cholecystitis. Will await GI eval. Patient seen and examined, I concur with the above assessment and plan. We will trend LFTs. Agree with ultrasound. <Ivan Momin MD - Last Filed: 06/11/25 15:59> Quality Stroke Does the patient have a stroke diagnosis?: No <Ivan Momin MD - Last Filed: 06/11/25 15:59> VTE Prior VTE?: No <Ivan Momin MD - Last Filed: 06/11/25 15:59> VTE Risk Level:: Surgical - moderate <Payal Hubbard PA-C - Last Filed: 06/08/25 08:12> VTE Device Contraindication: N/A - Device Ordered <Payal Hubbard PA-C - Last Filed: 06/08/25 08:12> VTE Drug Contraindication: Treatment Not Indicated <Payal Hubbard PA-C - Last Filed: 06/08/25 08:12> Procedures Date of Service Date of Service: 06/08/25 <Payal Hubbard PA-C - Last Filed: 06/08/25 08:12> 06/11/25 <Ivan Momin MD - Last Filed: 06/11/25 15:59>
--- NOTE | 2025-06-08 08:22 | PHA.MEDREC ---
Pharmacy Consult ? Medication Reconciliation Pharmacy has completed the medication reconciliation. Spoke with pt using campaign marketing manager services. Pt takes Zepbound on Fridays, and just one 10mg tablet of Ambien at night.
--- NOTE | 2025-06-08 08:54 | HO.ANESPROP2 ---
Documented by User: Carolyne Ponce NP 06/08/25 13:54 HPI - Anesthesia Eval Consult details Narrative: 40 yr old female for ERCP ?last GLP-1 dose 06/05/25 Anesthesia Pre-Procedure Meds Is the patient on any of the following meds?: GLP1/DPP4 PMFSH Active Problems Active Problems: All Active Problems Choledocholithiasis (Acute) Surgical History Surgical History H/O laparoscopy History of Social History Social History Household Members: Children Housing: House Do you presently have visiting nurse or other home services: No Patient Tobacco Use Status: Current someday Tobacco user Meds Allergies Allergy/AdvReac Type Severity Reaction Status Date / Time morphine Allergy Rash Verified 06/07/25 14:18 Active Medications: Current Medications Hydromorphone HCl (Hydromorphone Hcl 0.5 Mg/0.5 Ml Syringe) 0.5 mg IVPUSH Q3H PRN; Protocol PRN Reason: Pain, Severe (Pain Scale 7-10) Last Admin: 06/08/25 06:44 Dose: 0.5 mg Acetaminophen (Ofirmev) 1,000 mg in 100 mls @ 400 mls/hr IV Q6H PRN PRN Reason: Pain, Mild (Pain Scale 1-3) Last Admin: 06/08/25 08:24 Dose: 400 mls/hr Dextrose/Lactated Ringer's (D5lr) 1,000 mls @ 125 mls/hr IVCONT .Q8H [facility] Last Admin: 06/08/25 05:16 Dose: 125 mls/hr Piperacillin Sod/Tazobactam (Sod 3.375 gm/ Sodium Chloride) 50 mls @ 100 mls/hr IV Q6H [facility] Last Admin: 06/08/25 08:25 Dose: 100 mls/hr Ondansetron HCl (Ondansetron Hcl 4 Mg/2 Ml Vial) 4 mg IVPUSH QID PRN PRN Reason: Nausea Oxycodone HCl (Oxycodone Hcl Immed Release 5 Mg Tablet) 5 mg PO Q6H PRN PRN Reason: Pain, Moderate(Pain Scale 4-6) Last Admin: 06/08/25 05:21 Dose: 5 mg Sodium Chloride (0.9 % Sodium Chloride Flush 3 Ml Syringe) 3 ml IVFLUSH QSHIFT [facility] Last Admin: 06/08/25 08:28 Dose: Not Given Zolpidem Tartrate (Zolpidem Tartrate 5 Mg Tablet) 5 mg PO BEDTIME PRN PRN Reason: Insomnia Home Medications ?Medication ?Instructions ?Recorded ?Confirmed ?Last Taken ?Type cetirizine 10 mg tablet 10 mg PO DAILY 06/08/25 06/08/25 Unknown History cholecalciferol (vitamin D3) 25 25 mcg PO DAILY 06/08/25 06/08/25 Unknown History mcg (1,000 unit) capsule (Vitamin D3) gabapentin 300 mg capsule 600 mg PO TID 06/08/25 06/08/25 Unknown History lorazepam 0.5 mg tablet 0.5 mg PO BID PRN Anxiety 06/08/25 06/08/25 Unknown History sertraline 100 mg tablet 200 mg PO DAILY depressive disorder 06/08/25 06/08/25 Unknown History tirzepatide (weight loss) 10 10 mg subcut FR 06/08/25 06/09/25 06/05/25 09:00 History mg/0.5 mL subcutaneous pen injector (Zepbound) zolpidem 10 mg tablet 10 mg PO BEDTIME insomnia 06/08/25 06/08/25 Unknown History Exam Height,Weight and Vital Signs: Height 5 ft 2 in Weight 67.2 kg Last Vital Signs Temp 98.2 F 06/08/25 05:22 Pulse 73 06/08/25 05:22 Resp 20 06/08/25 05:22 BP 92/49 L 06/08/25 05:22 Pulse Ox 96 06/08/25 05:22 O2 Del Method Room Air 06/08/25 05:22 Pertinent Lab Results Pertinent Lab Results: Laboratory Tests 06/07/25 06/07/25 15:43 15:58 WBC 8.0 RBC 4.55 Hgb 13.2 Hct 39.0 MCV 85.7 MCH 29.0 MCHC 33.8 RDW 12.6 Plt Count 280 D MPV 10.1 Immature Gran % (Auto) 0.3 Neut % (Auto) 67.2 Lymph % (Auto) 26.8 [place] % (Auto) 4.3 Eos % (Auto) 0.9 Baso % (Auto) 0.5 Lymph # (Auto) 2.1 [place] # (Auto) 0.3 Eos # (Auto) 0.1 Baso # (Auto) 0.0 Abs Immat Gran (auto) 0.02 Absolute Neuts (auto) 5.4 Absolute Nucleated RBC 0.000 Nucleated RBC % (auto) 0.0 Sodium 141 Potassium 4.9 D Chloride 110 H Carbon Dioxide 24 Anion Gap 12 BUN 10 Creatinine 0.75 Estim Creat Clear Calc 89.6 Estimated GFR > 60 Random Glucose 93 Calcium 9.4 Total Bilirubin 2.4 H AST 20 ALT 25 Alkaline Phosphatase 113 Total Protein 7.2 Albumin 4.5 Beta HCG, Quant < 2 Urine Color Yellow Urine Appearance Clear Urine pH 7.5 Ur Specific [place] 1.025 Urine Protein Trace Urine Glucose (UA) Negative Urine Ketones Negative Urine Blood Negative Urine Nitrite Negative Ur Leukocyte Esterase Negative Documented by User: Aury Spicer MD 06/09/25 14:14 [facility] Surgical History Surgical History H/O laparoscopy History of History of Problems with Anesthesia: No Social History Social History Household Members: Children Housing: House Do you presently have visiting nurse or other home services: No Patient Tobacco Use Status: Current someday Tobacco user Meds Allergies Allergy/AdvReac Type Severity Reaction Status Date / Time morphine Allergy Rash Verified 06/07/25 14:18 Home Medications ?Medication ?Instructions ?Recorded ?Confirmed ?Last Taken ?Type cetirizine 10 mg tablet 10 mg PO DAILY 06/08/25 06/08/25 Unknown History cholecalciferol (vitamin D3) 25 25 mcg PO DAILY 06/08/25 06/08/25 Unknown History mcg (1,000 unit) capsule (Vitamin D3) gabapentin 300 mg capsule 600 mg PO TID 06/08/25 06/08/25 Unknown History lorazepam 0.5 mg tablet 0.5 mg PO BID PRN Anxiety 06/08/25 06/08/25 Unknown History sertraline 100 mg tablet 200 mg PO DAILY depressive disorder 06/08/25 06/08/25 Unknown History tirzepatide (weight loss) 10 10 mg subcut FR 06/08/25 06/09/25 06/05/25 09:00 History mg/0.5 mL subcutaneous pen injector (Zepbound) zolpidem 10 mg tablet 10 mg PO BEDTIME insomnia 06/08/25 06/08/25 Unknown History Exam Airway Mallampati Class: I TM Dist: >3cm Neck ROM: Full Loose/Missing/Broken Teeth: No Heart: RRR Lungs: CTA Assessment and Plan Assessment Anesthesia Assessment: Anesthesia Plan Discussed and Chart Reviewed Final Anesthetic Review History of Problems with Anesthesia: No NPO: Yes ASA Class: II Final Preanesthetic Review: Meds/Allgs Chart Reviewed, Consent Obtained/Reviewed and Anes Risks/Benef Reviewed Patient Risk: Low Procedure Risk: Intermediate Anesthetic Plan Anesthetic Plan: GA Disposition: Standard PACU
--- NOTE | 2025-06-08 09:11 | PM.GICN ---
History of Present Illness Data of Consult Service Date: 06/08/25 Requesting physician: Ivan Momin Primary Care Provider: Beatriz Ron MD HPI Reason for consult: abdo pain 40 year old female with PMH of migraines, kidney stones, asthma who I am seeing for choledocholithiasis She presents with 2-3 d of 10/10 RUQ pain which came on suddenly and radiates into the back and which feels like a pressure. Associated with nausea and non bloody emesis. She has never had it before, and no obvious precipitants, no relieving factors. she denies fever, normal stools and urine. no rectal bleeding, melena or nsaid use. she has a surgical history of 2 C sections and diagnostic laparoscopy for hemorrhagic ovarian cyst. LABS with elevated LFT and CT with suspected stone seen in proximal CBD Review of Systems Review of Systems: Constitutional : No Weight loss, No Fever, No Chills ENT/Mouth : No sore throat, No Rhinorrhea Eyes: No Swelling, No Redness Cardiovascular : No Chest Pain, No SOB, No Edema Respiratory : No Cough, No Sputum, No Wheezing Gastrointestinal : see HPI Genitourinary : NO Dysuria, No Urinary Frequency, No Hematuria, No Urgency Musculoskeletal : no joint pain, No Myalgias, No Joint Swelling Skin : No Skin Lesions, No rash Neuro : No Weakness, No Numbness, No Dizziness, No Headache Psych : No Anxiety/Panic, No Depression Heme/Lymph: No Bruising, No Lymphadenopathy Endocrine : No Polyuria, No Polydipsia All other systems reviewed and are negative. [facility] Family History Pertinent family history: no Fh of gallbladder disease Surgical History Surgical History (Updated 06/08/25 @ 08:05 by Payal Hubbard PA-C) H/O laparoscopy History of Social History Social History Patient Tobacco Use Status: Never used Tobacco Smoked in Last 30 Days: Yes Advance Directives: No Advance Directives Information Provided: No Do you have a plan to hurt others: No Plan Nutrition Risks: No Nutritional Risk Patient : No Meds Allergies Allergy/AdvReac Type Severity Reaction Status Date / Time morphine Allergy Rash Verified 06/07/25 14:18 Active Medications: Current Medications Hydromorphone HCl (Hydromorphone Hcl 0.5 Mg/0.5 Ml Syringe) 0.5 mg IVPUSH Q3H PRN; Protocol PRN Reason: Pain, Severe (Pain Scale 7-10) Last Admin: 06/08/25 06:44 Dose: 0.5 mg Acetaminophen (Ofirmev) 1,000 mg in 100 mls @ 400 mls/hr IV Q6H PRN PRN Reason: Pain, Mild (Pain Scale 1-3) Last Admin: 06/08/25 08:24 Dose: 400 mls/hr Dextrose/Lactated Ringer's (D5lr) 1,000 mls @ 125 mls/hr IVCONT .Q8H [facility] Last Admin: 06/08/25 05:16 Dose: 125 mls/hr Piperacillin Sod/Tazobactam (Sod 3.375 gm/ Sodium Chloride) 50 mls @ 100 mls/hr IV Q6H [facility] Last Admin: 06/08/25 08:25 Dose: 100 mls/hr Ondansetron HCl (Ondansetron Hcl 4 Mg/2 Ml Vial) 4 mg IVPUSH QID PRN PRN Reason: Nausea Oxycodone HCl (Oxycodone Hcl Immed Release 5 Mg Tablet) 5 mg PO Q6H PRN PRN Reason: Pain, Moderate(Pain Scale 4-6) Last Admin: 06/08/25 05:21 Dose: 5 mg Sodium Chloride (0.9 % Sodium Chloride Flush 3 Ml Syringe) [facility] Last Admin: 06/08/25 08:28 Dose: Not Given Zolpidem Tartrate (Zolpidem Tartrate 5 Mg Tablet) 5 mg PO BEDTIME PRN PRN Reason: Insomnia Home Medications ?Medication ?Instructions ?Recorded ?Confirmed ?Last Taken ?Type cetirizine 10 mg tablet 10 mg PO DAILY 06/08/25 06/08/25 Unknown History cholecalciferol (vitamin D3) 25 25 mcg PO DAILY 06/08/25 06/08/25 Unknown History mcg (1,000 unit) capsule (Vitamin D3) gabapentin 300 mg capsule 600 mg PO TID 06/08/25 06/08/25 Unknown History lorazepam 0.5 mg tablet 0.5 mg PO BID PRN Anxiety 06/08/25 06/08/25 Unknown History sertraline 100 mg tablet 200 mg PO DAILY depressive disorder 06/08/25 06/08/25 Unknown History tirzepatide (weight loss) 10 10 mg subcut FR 06/08/25 06/08/25 Unknown History mg/0.5 mL subcutaneous pen injector (Zepbound) zolpidem 10 mg tablet 10 mg PO BEDTIME insomnia 06/08/25 06/08/25 Unknown History Physical Exam Exam: Exam: EXAM: GENERAL: The patient is well developed and nontoxic. VITAL SIGNS:see workflow HEENT: Nonicteric sclerae, PERRLA, EOMI. Oropharynx clear. Moist mucous membranes. Conjunctivae appear well perfused. No thyroid mass. CHEST: Chest wall is nontender. HEART: Regular rate and rhythm without murmurs. LUNGS: Clear to auscultation bilaterally. ABDOMEN: Soft, positive bowel sounds, tender RUQ, no organomegaly.no flank tenderness SKIN: No rash, no excessive bruising, petechiae, or purpura. NEUROLOGIC: Cranial nerves II-XII intact without motor/sensory deficit. Psych: normal affect Vital Signs: Vital Signs: Last Vital Signs Temp 98.2 F 06/08/25 05:22 Pulse 73 06/08/25 05:22 Resp 20 06/08/25 05:22 BP 92/49 L 06/08/25 05:22 Pulse Ox 96 06/08/25 05:22 O2 Del Method Room Air 06/08/25 05:22 BMI result Body Mass Index 27.1 Results Labs 06/07/25 15:43 06/07/25 15:43 Labs: Short CBC 06/07/25 Range/Units 15:43 WBC 8.0 (4.8-10.8) X10*3/uL Hgb 13.2 (12.0-16.0) g/dl Hct 39.0 (37.0-47.0) % Plt Count 280 D (160-400) X10*3/uL BMP 06/07/25 15:43 Sodium 141 Potassium 4.9 D Chloride 110 H Carbon Dioxide 24 BUN 10 Creatinine 0.75 Calcium 9.4 Liver Function 06/07/25 Range/Units 15:43 Total Bilirubin 2.4 H (0.0-1.0) mg/dL AST 20 (5-31) U/L ALT 25 (0-31) U/L Alkaline Phosphatase 113 (39-117) U/L Albumin 4.5 (3.5-5.0) g/dL Urine 06/07/25 Range/Units 15:58 Urine Color Yellow Urine Appearance Clear Urine pH 7.5 (5.0-9.0) Ur Specific [place] 1.025 (1.005-1.025) Urine Protein Trace (Neg-Trace) mg/dL Urine Glucose (UA) Negative (Negative) mg/dL Imaging CT scan - abdomen: Attestation: I personally reviewed and interpreted this imaging study as follows: (distended GB, small calcified focus suspected stone in proximal CBD ) Assessment and Plan (1) Choledocholithiasis: Status: Acute Plan 1/ RUQ pain suspcted from gallbladder dz and choledocholithiasis, bili is only 2.4 and LFT are otherwise normal. The stone is small and will likely pass PLAN: /1 Trend LFT, if normalize then would hold on ERCP, but if worsen and pain persists then will schedule ERCP for tomorrow 2/ agree with antibioitc coverage for the moment Procedures Date of Service Date of Service: 06/08/25
[2025-06-08 10:17] LABS: Alanine Aminotransferase 18 U/L (0-31); Albumin Level 3.2 g/dL (3.5-5.0); Alkaline Phosphatase 83 U/L (39-117); Anion Gap 10 (12-20); Aspartate Amino Transferase 23 U/L (5-31); Blood Urea Nitrogen 14 mg/dL (9-16); Calcium 8.2 mg/dL (8.4-10.2); Carbon Dioxide 23 mmol/L (22-29); Chloride 109 mmol/L (96-108); Creatinine Clr Calc Pharmacy 92.1; Estimated Glomerular Filt Rate > 60; Potassium 4.0 mmol/L (3.3-5.1); Sodium 138 mmol/L (135-145); Total Protein 5.2 g/dL (6.5-8.0)
[2025-06-08 14:29] VITALS: BP 102/55; PULSE 76; RESP 16; TEMP 36.7; O2SAT 96
[2025-06-08 14:38] VITALS: BMI 27.1
[2025-06-08 16:00] VITALS: BP 103/60; PULSE 66; RESP 19; TEMP 36; O2SAT 96
[2025-06-08 20:00] VITALS: BP 100/56; PULSE 63; RESP 19; TEMP 36.1; O2SAT 96
[2025-06-09] VITALS (8 sets, daily range): BP systolic 101–123; BP diastolic 55–73; PULSE 73–83; RESP 10–19; TEMP 36.1–37.2; O2SAT 97–100
[2025-06-09] MEDS: Dextrose 5 % and Lactated Ring 1,000 ML 125 ML IVCONT ×2 (00:29→10:15)
[2025-06-09 06:40] LABS: Alanine Aminotransferase 26 U/L (0-31); Albumin Level 2.9 g/dL (3.5-5.0); Alkaline Phosphatase 90 U/L (39-117); Aspartate Amino Transferase 31 U/L (5-31); Total Protein 4.8 g/dL (6.5-8.0)
[2025-06-09] MEDS: oxyCODONE HCl Immed Release 5 MG TABLET PO ×2 (07:52→18:36)
--- NOTE | 2025-06-09 08:17 | P.PNGS_ITS ---
Subjective Subjective Date of Service: 06/09/25 Interval history: Has continued RUQ pain. States it is only improved when she receives pain meds. Some nausea. Physical Exam 2 Vital Signs: Vital Signs: Last Vital Signs Temp 97.3 F 06/09/25 07:30 Pulse 76 06/09/25 07:30 Resp 18 06/09/25 07:30 BP 104/60 06/09/25 07:30 Pulse Ox 97 06/09/25 07:30 O2 Del Method Room Air 06/09/25 07:30 BMI result Body Mass Index 27.1 Const: General: comfortable, no acute distress and alert O rientation/consciousness: patient oriented x3 Resp: Effort & Inspection: normal respiratory effort GI: Other: moderate tenderness, RUQ Inspection: No distended Palpation (GI): Soft to palpation and no guarding Percussion: Yes normal to percussion Skin: General skin exam: no rashes or lesions noted and no jaundice Neuro: General: patient oriented x3 and moves all extremities Objective Data Active Medications Hydromorphone HCl (Hydromorphone Hcl 0.5 Mg/0.5 Ml Syringe) 0.5 mg IVPUSH Q3H PRN; Protocol PRN Reason: Pain, Severe (Pain Scale 7-10) Last Admin: 06/09/25 06:22 Dose: 0.5 mg Documented By: MARVEL Acetaminophen (Ofirmev) 1,000 mg in 100 mls @ 400 mls/hr IV Q6H PRN PRN Reason: Pain, Mild (Pain Scale 1-3) Last Infusion: 06/09/25 00:20 Dose: Infused Documented By: MARVEL Dextrose/Lactated Ringer's (D5lr) 1,000 mls @ 125 mls/hr IVCONT .Q8H [facility] Last Admin: 06/09/25 00:29 Dose: 125 mls/hr Documented By: MARVEL Piperacillin Sod/Tazobactam (Sod 3.375 gm/ Sodium Chloride) 50 mls @ 100 mls/hr IV Q6H [facility] Last Admin: 06/09/25 07:52 Dose: 100 mls/hr Documented By: NGA Ondansetron HCl (Ondansetron Hcl 4 Mg/2 Ml Vial) 4 mg IVPUSH QID PRN PRN Reason: Nausea Last Admin: 06/09/25 07:52 Dose: 4 mg Documented By: NGA Oxycodone HCl (Oxycodone Hcl Immed Release 5 Mg Tablet) 5 mg PO Q6H PRN PRN Reason: Pain, Moderate(Pain Scale 4-6) Last Admin: 06/09/25 07:52 Dose: 5 mg Documented By: NGA Sodium Chloride (0.9 % Sodium Chloride Flush 3 Ml Syringe) 3 ml IVFLUSH QSHIFT [facility] Last Admin: 06/09/25 07:03 Dose: Not Given Documented By: NGA Non-Admin Reason: IV Running Zolpidem Tartrate (Zolpidem Tartrate 5 Mg Tablet) 5 mg PO BEDTIME PRN PRN Reason: Insomnia Labs 06/07/25 15:43 06/08/25 09:39 Labs: Laboratory Results - last 24 hr 06/08/25 06/09/25 09:39 05:55 Anion Gap 10 L Estim Creat Clear Calc 92.1 Estimated GFR > 60 Random Glucose 88 Calcium 8.2 L D Total Bilirubin 2.4 H 2.1 H Direct Bilirubin 0.3 AST 23 31 ALT 18 26 Alkaline Phosphatase 83 90 Total Protein 5.2 L 4.8 L Albumin 3.2 L 2.9 L Procedures Date of Service Date of Service: 06/09/25 Progress Note: A&P Assessment and plan (1) Choledocholithiasis: Status: Acute Plan Choledocolithiasis on CT scan- seen by GI who felt the stone was small would likely pass. She has continued RUQ pain and bili is marginally improved. Will therefore obtain MRCP to assess. Cont NPO, IVF, IV abx. All questions answered. Further plan dependent on imaging. Time Spent With Patient Time: Total time managing care of this patient today ____ minutes. Quality Stroke Does the patient have a stroke diagnosis?: No VTE Prior VTE?: No VTE Risk Level:: Surgical - moderate VTE Device Contraindication: N/A - Device Ordered VTE Drug Contraindication: Treatment Not Indicated
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
--- NOTE | 2025-06-09 14:41 | P.PNGI_ITS ---
Subjective Subjective Date of Service: 06/09/25 Interval History: still having crampy abdominal pain, 10/10 uncomfortable nausea persists LFT improved but could still have stone seen on imaging Critical Care Time (minutes): 0 Physical Exam 2 Exam: Exam: EXAM: GENERAL: The patient is well developed and nontoxic. VITAL SIGNS:see workflow HEENT: Nonicteric sclerae, PERRLA, EOMI. Oropharynx clear. Moist mucous membranes. Conjunctivae appear well perfused. No thyroid mass. CHEST: Chest wall is nontender. HEART: Regular rate and rhythm without murmurs. LUNGS: Clear to auscultation bilaterally. ABDOMEN: Soft, positive bowel sounds, tender ruq, no organomegaly.no flank tenderness SKIN: No rash, no excessive bruising, petechiae, or purpura. NEUROLOGIC: Cranial nerves II-XII intact without motor/sensory deficit. Psych: normal affect Vital Signs: Vital Signs: Last Vital Signs Temp 98.2 F 06/09/25 13:20 Pulse 73 06/09/25 13:20 Resp 16 06/09/25 13:20 BP 107/73 06/09/25 13:20 Pulse Ox 97 06/09/25 13:20 O2 Del Method Room Air 06/09/25 13:20 BMI result Body Mass Index 27.1 Objective Data Labs 06/07/25 15:43 06/08/25 09:39 Labs: Laboratory Results - last 24 hr 06/09/25 05:55 Total Bilirubin 2.1 H Direct Bilirubin 0.3 AST 31 ALT 26 Alkaline Phosphatase 90 Total Protein 4.8 L Albumin 2.9 L Procedures Date of Service Date of Service: 06/09/25 Progress Note: A&P Assessment and plan (1) Choledocholithiasis: Status: Acute Assessment and Plan: 1/ Ongoing abdominal pain, stone seen on CT within CBD, clinical suspicion is that she still ahs the stone, maybe ball valve phenomenen given the crampy nature of pain PLAN: /1 - ERCP today for further assessment Time Spent With Patient Time: Total time managing care of this patient today ____ minutes. Quality Stroke Does the patient have a stroke diagnosis?: No VTE Prior VTE?: No VTE Risk Level:: Surgical - moderate VTE Device Contraindication: N/A - Device Ordered VTE Drug Contraindication: Treatment Not Indicated
--- NOTE | 2025-06-09 16:05 | W.PM.OPN ---
Operative Note Operative Note Date of Service: 06/09/25 Narrative: Description:?Endoscopic retrograde cholangiopancreatography (ERCP) PROCEDURE:?Endoscopic retrograde cholangiopancreatography with sphincterotomy and intra op cholangiogram INDICATION FOR THE PROCEDURE:?Patient with a history of choledocholithiasis on imaging MEDICATIONS:?General anesthesia. Indomethacin 1 g WA The risks of the procedure were made aware to the patient and consisted of medication reaction, bleeding, perforation, aspiration, and post ERCP pancreatitis. DESCRIPTION OF PROCEDURE:?After informed consent and appropriate sedation, the duodenoscope was inserted into the oropharynx, down the esophagus, and into the stomach. The scope was then advanced through the pylorus to the ampulla. The CBD was selectively cannulated with wire guided approach and a cholangiogram was obtained. The cholangiogram was formally interpreted and documented, and confirmed placement with filling defect noted in mid CBD, possible air bubble vs stone with a dilated duct to about 10 mm. A sphincterotomy was performed about 8-10 mm to facilitate stone removal, ductal clearance and enlarge the orifice beyond standard cannulation. After this a extraction balloon was used to sweep the duct and no debris or stone material was noted after 3 successive swipes. Completion balloon occluded cholangiography demonstrated no filling defects. Intraop cholangiogram reivew and interpretation by performing physician: Dilated CBD with filling defect in mid CBD. CBD measured about 10 mm. No stricture or leak seen. the gallbladder did not fill with dye, highly suggestive of cholecystitis. FINDINGS: 1. choledocholithiasis on imaging s/p sphincterotomy 2. acute cholecystitis suggested by lack of filling of GB RECOMMENDATIONS: 1. clears and f/u with surgery
[2025-06-09] MEDS: Lactated Ringers 500 ML 20 ML IVCONT (16:54)
[2025-06-10 03:27] VITALS: BP 108/69; PULSE 78; RESP 16; TEMP 36.5; O2SAT 95
[2025-06-10 07:37] VITALS: BP 125/60; PULSE 70; RESP 18; TEMP 36; O2SAT 96
--- NOTE | 2025-06-10 08:44 | HO.POSTANES ---
Post Anesthesia Evaluation Post Anesthesia Evaluation Date of Service: 06/10/25 Vital Signs: Vital Signs Temp Pulse Resp BP Pulse Ox O2 Del Method 06/10/25 07:37 96.8 F 70 18 125/60 96 Room Air 06/10/25 03:27 97.7 F 78 16 108/69 95 Room Air Anesthesia: General Mental Status: Awake Pain Control: Satisfactory Nausea/Vomiting: None Hydration: Adequate Anesthesia-Related Issues: No Anes. Related Issues
[2025-06-10] MEDS: oxyCODONE HCl Immed Release 5 MG TABLET PO ×3 (09:32→21:59)
--- NOTE | 2025-06-10 09:53 | PM.PNGS ---
Subjective Subjective Date of Service: 06/10/25 Interval history: Feels improved this morning. Still has pain in the RUQ but overall improved. Physical Exam Vital Signs: Vital Signs: Last Vital Signs Temp 96.8 F 06/10/25 07:37 Pulse 70 06/10/25 07:37 Resp 18 06/10/25 07:37 BP 125/60 06/10/25 07:37 Pulse Ox 96 06/10/25 07:37 O2 Del Method Room Air 06/10/25 07:37 O2 Flow Rate 3 06/09/25 16:18 BMI result Body Mass Index 27.1 Const: General: comfortable, no acute distress and alert Orientation/consciousness: patient oriented x3 Resp: Effort & Inspection: normal respiratory effort GI: Inspection: No distended Palpation (GI): Soft to palpation, Tenderness to palpation present (GI) in the RUQ and no guarding Skin: General skin exam: no rashes or lesions noted and no jaundice Neuro: General: patient oriented x3 and moves all extremities Objective Data Active Medications Hydromorphone HCl (Hydromorphone Hcl 0.5 Mg/0.5 Ml Syringe) 0.5 mg IVPUSH Q3H PRN; Protocol PRN Reason: Pain, Severe (Pain Scale 7-10) Last Admin: 06/10/25 07:43 Dose: 0.5 mg Documented By: MYRA Acetaminophen (Ofirmev) 1,000 mg in 100 mls @ 400 mls/hr IV Q6H PRN PRN Reason: Pain, Mild (Pain Scale 1-3) Last Infusion: 06/09/25 00:20 Dose: Infused Documented By: MARVEL Piperacillin Sod/Tazobactam (Sod 3.375 gm/ Sodium Chloride) 50 mls @ 100 mls/hr IV Q6H [facility] Last Infusion: 06/10/25 08:19 Dose: Infused Documented By: MYRA Lactated Ringer's (Lr) 500 mls @ 80 mls/hr IVCONT .Q6H15M [facility] Last Infusion: 06/10/25 07:13 Dose: 80 mls/hr Documented By: MYRA Naloxone HCl (Naloxone Hcl 0.4 Mg/Ml Vial) 0.04 mg IVPUSH Q5M PRN PRN Reason: Excessive sedation or RR < 8 Naloxone HCl (Naloxone Hcl 0.4 Mg/Ml Vial) 0.04 mg IVPUSH Q5M PRN PRN Reason: Excessive sedation or RR < 8 Ondansetron HCl (Ondansetron Hcl 4 Mg/2 Ml Vial) 4 mg IVPUSH QID PRN PRN Reason: Nausea Last Admin: 06/10/25 07:57 Dose: 4 mg Documented By: MYRA Oxycodone HCl (Oxycodone Hcl Immed Release 5 Mg Tablet) 5 mg PO Q6H PRN PRN Reason: Pain, Moderate(Pain Scale 4-6) Last Admin: 06/10/25 09:32 Dose: 5 mg Documented By: HOWARD Sodium Chloride (0.9 % Sodium Chloride Flush 3 Ml Syringe) 3 ml IVFLUSH QSHIFT [facility] Last Admin: 06/10/25 07:13 Dose: Not Given Documented By: MYRA Non-Admin Reason: IV Running Zolpidem Tartrate (Zolpidem Tartrate 5 Mg Tablet) 5 mg PO BEDTIME PRN PRN Reason: Insomnia Last Admin: 06/09/25 21:38 Dose: 5 mg Documented By: CROP Labs 06/07/25 15:43 06/08/25 09:39 Procedures Date of Service Date of Service: 06/10/25 Progress Note: A&P Assessment and plan (1) Choledocholithiasis: Status: Acute Plan Underwent Endoscopic retrograde cholangiopancreatography with sphincterotomy and intra op cholangiogram yesterday. GB did not fill on IOC suggestive of acute cholecystitis. AM LFTs pending. Plan for laparoscopic cholecystectomy, possible open tomorrow. Cont clear liquids for today. NPO after midnight. Cont IV zosyn, IVF. Time Spent With Patient Time: Total time managing care of this patient today ____ minutes. Quality Stroke Does the patient have a stroke diagnosis?: No VTE Prior VTE?: No VTE Risk Level:: Surgical - moderate VTE Device Contraindication: N/A - Device Ordered VTE Drug Contraindication: Treatment Not Indicated
--- NOTE | 2025-06-10 09:54 | HO.ANESPROP2 ---
Documented by User: Carolyne Ponce NP 06/10/25 09:55 HPI - Anesthesia Eval Consult details Narrative: 40 yr old female for Cholecystectomy Laparoscopic,possible open s/p ERCP with sphincteromty 06/09/25 with GA, ETT 7.5 Anesthesia Pre-Procedure Meds Is the patient on any of the following meds?: GLP1/DPP4 PMFSH Active Problems Active Problems: All Active Problems Choledocholithiasis (Acute) Surgical History Surgical History Hx of cholecystectomy History of ERCP H/O laparoscopy History of History of Problems with Anesthesia: No Social History Social History Household Members: Children Housing: House Do you presently have visiting nurse or other home services: No Patient Tobacco Use Status: Current everyday Tobacco user service: No Meds Allergies Allergy/AdvReac Type Severity Reaction Status Date / Time morphine Allergy Rash Verified 06/07/25 14:18 Active Medications: Current Medications Gabapentin (Gabapentin 300 Mg Capsule) 600 mg PO TID BRIAN Hydromorphone HCl (Hydromorphone Hcl 0.5 Mg/0.5 Ml Syringe) 0.5 mg IVPUSH Q3H PRN; Protocol PRN Reason: Pain, Severe (Pain Scale 7-10) Last Admin: 06/10/25 07:43 Dose: 0.5 mg Acetaminophen (Ofirmev) 1,000 mg in 100 mls @ 400 mls/hr IV Q6H PRN PRN Reason: Pain, Mild (Pain Scale 1-3) Last Infusion: 06/09/25 00:20 Dose: Infused Piperacillin Sod/Tazobactam (Sod 3.375 gm/ Sodium Chloride) 50 mls @ 100 mls/hr IV Q6H [facility] Last Infusion: 06/10/25 08:19 Dose: Infused Lactated Ringer's (Lr) 500 mls @ 80 mls/hr IVCONT .Q6H15M [facility] Last Infusion: 06/10/25 07:13 Dose: 80 mls/hr Lorazepam (Lorazepam 0.5 Mg Tablet) 0.5 mg PO BID PRN PRN Reason: Anxiety Naloxone HCl (Naloxone Hcl 0.4 Mg/Ml Vial) 0.04 mg IVPUSH Q5M PRN PRN Reason: Excessive sedation or RR < 8 Naloxone HCl (Naloxone Hcl 0.4 Mg/Ml Vial) 0.04 mg IVPUSH Q5M PRN PRN Reason: Excessive sedation or RR < 8 Ondansetron HCl (Ondansetron Hcl 4 Mg/2 Ml Vial) 4 mg IVPUSH QID PRN PRN Reason: Nausea Last Admin: 06/10/25 07:57 Dose: 4 mg Oxycodone HCl (Oxycodone Hcl Immed Release 5 Mg Tablet) 5 mg PO Q6H PRN PRN Reason: Pain, Moderate(Pain Scale 4-6) Last Admin: 06/10/25 09:32 Dose: 5 mg Sertraline HCl (Sertraline Hcl 100 Mg Tablet) 200 mg PO DAILY BRIAN Sodium Chloride (0.9 % Sodium Chloride Flush 3 Ml Syringe) 3 ml IVFLUSH QSHIFT BRIAN Last Admin: 06/10/25 07:13 Dose: Not Given Zolpidem Tartrate (Zolpidem Tartrate 5 Mg Tablet) 5 mg PO BEDTIME PRN PRN Reason: Insomnia Last Admin: 06/09/25 21:38 Dose: 5 mg Home Medications ?Medication ?Instructions ?Recorded ?Confirmed ?Last Taken ?Type cetirizine 10 mg tablet 10 mg PO DAILY 06/08/25 06/08/25 Unknown History cholecalciferol (vitamin D3) 25 25 mcg PO DAILY 06/08/25 06/08/25 Unknown History mcg (1,000 unit) capsule (Vitamin D3) gabapentin 300 mg capsule 600 mg PO TID 06/08/25 06/08/25 Unknown History lorazepam 0.5 mg tablet 0.5 mg PO BID PRN Anxiety 06/08/25 06/08/25 Unknown History sertraline 100 mg tablet 200 mg PO DAILY depressive disorder 06/08/25 06/08/25 Unknown History tirzepatide (weight loss) 10 10 mg subcut FR 06/08/25 06/09/25 06/05/25 09:00 History mg/0.5 mL subcutaneous pen injector (Zepbound) zolpidem 10 mg tablet 10 mg PO BEDTIME insomnia 06/08/25 06/08/25 Unknown History Exam Height,Weight and Vital Signs: Height 5 ft 2 in Weight 67.2 kg Last Vital Signs Temp 96.8 F 06/10/25 07:37 Pulse 70 06/10/25 07:37 Resp 18 06/10/25 07:37 BP 125/60 06/10/25 07:37 Pulse Ox 96 06/10/25 07:37 O2 Del Method Room Air 06/10/25 07:37 O2 Flow Rate 3 06/09/25 16:18 Pertinent Lab Results Pertinent Lab Results: Laboratory Tests 06/07/25 06/07/25 06/08/25 15:43 15:58 09:39 WBC 8.0 RBC 4.55 Hgb 13.2 Hct 39.0 MCV 85.7 MCH 29.0 MCHC 33.8 RDW 12.6 Plt Count 280 D MPV 10.1 Immature Gran % (Auto) 0.3 Neut % (Auto) 67.2 Lymph % (Auto) 26.8 [place] % (Auto) 4.3 Eos % (Auto) 0.9 Baso % (Auto) 0.5 Lymph # (Auto) 2.1 [place] # (Auto) 0.3 Eos # (Auto) 0.1 Baso # (Auto) 0.0 Abs Immat Gran (auto) 0.02 Absolute Neuts (auto) 5.4 Absolute Nucleated RBC 0.000 Nucleated RBC % (auto) 0.0 Sodium 141 138 Potassium 4.9 D 4.0 Chloride 110 H 109 H Carbon Dioxide 24 23 Anion Gap 12 10 L BUN 10 14 Creatinine 0.75 0.73 Estim Creat Clear Calc 89.6 92.1 Estimated GFR > 60 > 60 Random Glucose 93 88 Calcium 9.4 8.2 L D Total Bilirubin 2.4 H 2.4 H Direct Bilirubin AST 20 23 ALT 25 18 Alkaline Phosphatase 113 83 Total Protein 7.2 5.2 L Albumin 4.5 3.2 L Beta HCG, Quant < 2 Urine Color Yellow Urine Appearance Clear Urine pH 7.5 Ur Specific [place] 1.025 Urine Protein Trace Urine Glucose (UA) Negative Urine Ketones Negative Urine Blood Negative Urine Nitrite Negative Ur Leukocyte Esterase Negative 06/09/25 05:55 WBC RBC Hgb Hct MCV MCH MCHC RDW Plt Count MPV Immature Gran % (Auto) Neut % (Auto) Lymph % (Auto) [place] % (Auto) Eos % (Auto) Baso % (Auto) Lymph # (Auto) [place] # (Auto) Eos # (Auto) Baso # (Auto) Abs Immat Gran (auto) Absolute Neuts (auto) Absolute Nucleated RBC Nucleated RBC % (auto) Sodium Potassium Chloride Carbon Dioxide Anion Gap BUN Creatinine Estim Creat Clear Calc Estimated GFR Random Glucose Calcium Total Bilirubin 2.1 H Direct Bilirubin 0.3 AST 31 ALT 26 Alkaline Phosphatase 90 Total Protein 4.8 L Albumin 2.9 L Beta HCG, Quant Urine Color Urine Appearance Urine pH Ur Specific [place] Urine Protein Urine Glucose (UA) Urine Ketones Urine Blood Urine Nitrite Ur Leukocyte Esterase Assessment and Plan Final Anesthetic Review History of Problems with Anesthesia: No Documented by User: Aury Spicer MD 06/11/25 14:28 [facility] Surgical History Surgical History Hx of cholecystectomy History of ERCP H/O laparoscopy History of Social History Social History Household Members: Children Housing: House Do you presently have visiting nurse or other home services: No Patient Tobacco Use Status: Current everyday Tobacco user service: No Meds Allergies Allergy/AdvReac Type Severity Reaction Status Date / Time morphine Allergy Rash Verified 06/07/25 14:18 Home Medications ?Medication ?Instructions ?Recorded ?Confirmed ?Last Taken ?Type cetirizine 10 mg tablet 10 mg PO DAILY 06/08/25 06/08/25 Unknown History cholecalciferol (vitamin D3) 25 25 mcg PO DAILY 06/08/25 06/08/25 Unknown History mcg (1,000 unit) capsule (Vitamin D3) gabapentin 300 mg capsule 600 mg PO TID 06/08/25 06/08/25 Unknown History lorazepam 0.5 mg tablet 0.5 mg PO BID PRN Anxiety 06/08/25 06/08/25 Unknown History sertraline 100 mg tablet 200 mg PO DAILY depressive disorder 06/08/25 06/08/25 Unknown History tirzepatide (weight loss) 10 10 mg subcut FR 06/08/25 06/09/25 06/05/25 09:00 History mg/0.5 mL subcutaneous pen injector (Zepbound) zolpidem 10 mg tablet 10 mg PO BEDTIME insomnia 06/08/25 06/08/25 Unknown History Exam Airway Mallampati Class: II TM Dist: >3cm Neck ROM: Full Loose/Missing/Broken Teeth: No Heart: RRR Lungs: CTA Assessment and Plan Assessment Anesthesia Assessment: Anesthesia Plan Discussed and Chart Reviewed Final Anesthetic Review NPO: Yes ASA Class: II Final Preanesthetic Review: Meds/Allgs Chart Reviewed, Consent Obtained/Reviewed and Anes Risks/Benef Reviewed Patient Risk: Low Procedure Risk: Intermediate Anesthetic Plan Anesthetic Plan: GA Disposition: Standard PACU
[2025-06-10 11:42] LABS: Alanine Aminotransferase 42 U/L (0-31); Albumin Level 3.1 g/dL (3.5-5.0); Alkaline Phosphatase 121 U/L (39-117); Aspartate Amino Transferase 37 U/L (5-31); Total Protein 5.1 g/dL (6.5-8.0)
--- NOTE | 2025-06-10 12:06 | MHC.CM.PN ---
DX Choleducholithiasis S/P ERCP w Sphincterotomy She lives with her 3 dtrs She has a [facility] thru [employer]. Patient states that she ambulates independently, no AD She declined the offer to document a HCP. She confirmed PCP Beatriz [facility] resume [facility] services. Patient will arrange for a ride home. A custodian supervisor was uses to perform the CM assessment.
[2025-06-10 16:00] VITALS: BP 102/56; PULSE 80; RESP 19; TEMP 35.8; O2SAT 97
[2025-06-10 20:00] VITALS: BP 113/68; PULSE 62; RESP 18; TEMP 36.2; O2SAT 98
[2025-06-11] VITALS (21 sets, daily range): BP systolic 110–143; BP diastolic 56–84; PULSE 76–102; RESP 12–118; TEMP 35.9–37; O2SAT 95–99
[2025-06-11] MEDS: Lactated Ringers 1,000 ML 80 ML IVCONT (06:22)
[2025-06-11 06:34] LABS: Alanine Aminotransferase 36 U/L (0-31); Albumin Level 2.9 g/dL (3.5-5.0); Alkaline Phosphatase 126 U/L (39-117); Aspartate Amino Transferase 31 U/L (5-31); Total Protein 4.9 g/dL (6.5-8.0)
[2025-06-11] MEDS: oxyCODONE HCl Immed Release 5 MG TABLET PO ×2 (08:11→19:22)
--- NOTE | 2025-06-11 08:45 | P.PNGS_ITS ---
Subjective Subjective Date of Service: 06/11/25 <Payal Hubbard PA-C - Last Filed: 06/11/25 08:47> 06/11/25 <Iavn Momin MD - Last Filed: 06/11/25 15:59> Interval history: Awaiting lap mirlande today. Has continued RUQ pain. <Payal Hubbard PA-C - Last Filed: 06/11/25 08:47> Physical Exam 2 Vital Signs: Vital Signs: Last Vital Signs Temp 97.0 F 06/11/25 07:40 Pulse 83 06/11/25 07:40 Resp 16 06/11/25 07:40 BP 112/62 06/11/25 07:40 Pulse Ox 95 06/11/25 07:40 O2 Del Method Room Air 06/11/25 07:40 O2 Flow Rate 3 06/09/25 16:18 BMI result Body Mass Index 27.1 <Payal Hubbard PA-C - Last Filed: 06/11/25 08:47> Const: General: comfortable, no acute distress and alert <Payal Hubbard PA-C - Last Filed: 06/11/25 08:47> Orientation/consciousness: patient oriented x3 <Payal Hubbard PA-C - Last Filed: 06/11/25 08:47> Resp: Effort & Inspection: normal respiratory effort <Payal Hubbard PA-C - Last Filed: 06/11/25 08:47> GI: Inspection: No distended <Payal Hubbard PA-C - Last Filed: 06/11/25 08:47> Palpation (GI): Tenderness to palpation present (GI) in the RUQ and no guarding <Payal Hubbard PA-C - Last Filed: 06/11/25 08:47> Neuro: General: patient oriented x3 and moves all extremities <CARLOS Cowan Last Filed: 06/11/25 08:47> Objective Data Active Medications Gabapentin (Gabapentin 300 Mg Capsule) 600 mg PO TID BRIAN Last Admin: 06/11/25 08:08 Dose: 600 mg Documented By: ALEXANDRA Hydromorphone HCl (Hydromorphone Hcl 0.5 Mg/0.5 Ml Syringe) 0.5 mg IVPUSH Q3H PRN; Protocol PRN Reason: Pain, Severe (Pain Scale 7-10) Last Admin: 06/11/25 06:20 Dose: 0.5 mg Documented By: KAMERON Acetaminophen (Ofirmev) 1,000 mg in 100 mls @ 400 mls/hr IV Q6H PRN PRN Reason: Pain, Mild (Pain Scale 1-3) Last Infusion: 06/11/25 08:40 Dose: Infused Documented By: ALEXANDRA Piperacillin Sod/Tazobactam (Sod 3.375 gm/ Sodium Chloride) 50 mls @ 100 mls/hr IV Q6H [facility] Last Infusion: 06/11/25 02:49 Dose: Infused Documented By: LEONIDES Lactated Ringer's (Lr) 1,000 mls @ 80 mls/hr IVCONT .[id number] [facility] Last Admin: 06/11/25 06:22 Dose: 80 mls/hr Documented By: KAMERON Lorazepam (Lorazepam 0.5 Mg Tablet) 0.5 mg PO BID PRN PRN Reason: Anxiety Naloxone HCl (Naloxone Hcl 0.4 Mg/Ml Vial) 0.04 mg IVPUSH Q5M PRN PRN Reason: Excessive sedation or RR < 8 Naloxone HCl (Naloxone Hcl 0.4 Mg/Ml Vial) 0.04 mg IVPUSH Q5M PRN PRN Reason: Excessive sedation or RR < 8 Ondansetron HCl (Ondansetron Hcl 4 Mg/2 Ml Vial) 4 mg IVPUSH QID PRN PRN Reason: Nausea Last Admin: 06/10/25 07:57 Dose: 4 mg Documented By: MYRA Oxycodone HCl (Oxycodone Hcl Immed Release 5 Mg Tablet) 5 mg PO Q6H PRN PRN Reason: Pain, Moderate(Pain Scale 4-6) Last Admin: 06/11/25 08:11 Dose: 5 mg Documented By: ALEXANDRA Sertraline HCl (Sertraline Hcl 100 Mg Tablet) 200 mg PO DAILY [facility] Last Admin: 06/11/25 08:07 Dose: 200 mg Documented By: ALEXANDRA Sodium Chloride (0.9 % Sodium Chloride Flush 3 Ml Syringe) 3 ml IVFLUSH QSHIFT BRIAN Last Admin: 06/10/25 20:06 Dose: Not Given Documented By: LEONIDES Non-Admin Reason: IV Running Zolpidem Tartrate (Zolpidem Tartrate 5 Mg Tablet) 5 mg PO BEDTIME PRN PRN Reason: Insomnia Last Admin: 06/10/25 21:59 Dose: 5 mg Documented By: LEONIDES <Payal Hubbard PA-C - Last Filed: 06/11/25 08:47> Labs CBC & Chem 7: 06/07/25 15:43 06/08/25 09:39 <Payal Hubbard PA-C - Last Filed: 06/11/25 08:47> Labs: Laboratory Results - last 24 hr 06/10/25 06/11/25 10:35 06:02 Total Bilirubin 3.1 H 2.2 H Direct Bilirubin 0.4 0.5 AST 37 H 31 ALT 42 H 36 H Alkaline Phosphatase 121 H 126 H Total Protein 5.1 L 4.9 L Albumin 3.1 L 2.9 L <Payal Hubbard PA-C - Last Filed: 06/11/25 08:47> Procedures Date of Service Date of Service: 06/11/25 <Payal Hubbard PA-C - Last Filed: 06/11/25 08:47> 06/11/25 <Ivan Momin MD - Last Filed: 06/11/25 15:59> Progress Note: A&P Assessment and plan (1) Choledocholithiasis: Status: Acute <Payal Hubbard PA-C - Last Filed: 06/11/25 08:47> Assessment and Plan: Admitted for choledocolithiasis. Underwent Endoscopic retrograde cholangiopancreatography with sphincterotomy and intra op cholangiogram on 06/09. GB did not fill on IOC suggestive of acute cholecystitis. LFTs improved this morning. Plan for laparoscopic cholecystectomy, possible open today. Risks, benefits, alternatives of laparoscopic possible open cholecystectomy were reviewed with the patient including but not limited to bleeding, infection, numbness, pain, poor healing, injury to the liver, bowel or bile ducts, leak, retained stones and the patient wishes to proceed.?All questions were answered. Cont NPO, IVF, IV zosyn. <Payal Hubbard PA-C - Last Filed: 06/11/25 08:47> Time Spent With Patient Time: Total time managing care of this patient today ____ minutes. <Payal Hubbard PA-C - Last Filed: 06/11/25 08:47> Quality Stroke Does the patient have a stroke diagnosis?: No <Payal Hubbard PA-C - Last Filed: 06/11/25 08:47> VTE Prior VTE?: No <Payal Hubbard PA-C - Last Filed: 06/11/25 08:47> VTE Risk Level:: Surgical - moderate <Payal Hubbard PA-C - Last Filed: 06/11/25 08:47> VTE Device Contraindication: N/A - Device Ordered <Payal Hubbard PA-C - Last Filed: 06/11/25 08:47> VTE Drug Contraindication: Treatment Not Indicated <Payal Hubbard PA-C - Last Filed: 06/11/25 08:47>
[2025-06-11] MEDS: 0.9 % Sodium Chloride Flush 3 ML SYRINGE IVFLUSH ×3 (09:27→22:10)
--- NOTE | 2025-06-11 12:58 | PC.NURSE ---
pt denies pain after dilaudid vss pwd nad no griamcing noted aware careplan
--- NOTE | 2025-06-11 15:59 | P.OP_ITS ---
Operative Note Operative Note Date of Service: 06/11/25 Narrative: Preoperative diagnosis: Acute cholecystitis, choledocholithiasis Postoperative diagnosis: Same Procedure: Laparoscopic cholecystectomy Surgeon: Ivan Momin MD Back End Developer: Ignacio Logan PA-C Anesthesia: General endotracheal Indications for procedure: 40-year-old female patient presenting with complaints of abdominal pain in the right upper quadrant and epigastrium. Workup revealed elevated LFTs and a CT with possible stone in the common bile duct. Subsequent ERCP was negative for common bile duct stone. She presents now for laparoscopic or possible open cholecystectomy. Operative findings: Evidence of acute cholecystitis with pericholecystic fluid. No definite gallstones noted within the gallbladder. Specimen: gallbladder Estimated blood loss: 10 mL Complications: None Procedure details: Patient was brought to the OR and placed in a supine position. After administering general anesthesia the patient's abdomen was prepped with ChloraPrep and draped in a sterile fashion. A surgical time-out was called the consent confirmed. Patient received preoperative antibiotics and Venodyne boots were in place. Local anesthesia consisting of 0.5% Sensorcaine without epinephrine was infiltrated in a periumbilical region. A 5 mm incision was made above the umbilicus in a transverse fashion. The Veress needle was then inserted while elevating abdominal cavity with towel clips. After positive drop test the abdomen was insufflated to a pressure of 15 mm of mercury. The Veress needle was then removed and a 5 mm trocar inserted. The camera was inserted in the abdomen explored. A 12 mm trocar was then placed in the epigastrium. Two 5 mm trocars placed in the right upper quadrant by the medical assistant secretary. The patient was placed in reverse Trendelenburg positioning and rotated to the left. The gallbladder was grasped with the fundus and retracted cephalad by the medical assistant secretary. The infundibulum was then grasped and retracted away from the liver bed, also by the medical assistant secretary. The Dolphin dissected was then used by the surgeon to dissect the peritoneum off the infundibulum to reveal the junction with the cystic duct. Cystic artery was noted slightly medial and posterior to the cystic duct. After obtaining a critical view the cystic duct was doubly clipped and divided. The cystic artery was then doubly clipped and divided. The gallbladder was then dissected off the liver bed using electrocautery with an L hook. Hemostasis was assured all times using the electrocautery. When the gallbladder is completely dissected off the liver bed was placed in an Endo-Catch bag and brought out through the epigastric incision. The gallbladder was sent to pathology for further examination. The abdomen was then re-examined. The liver bed was irrigated and suctioned dry. No bleeding or bile leak could be identified. CO2 was then evacuated and all trocars removed. Fascia was closed at the epigastric incision using a [id number] 0 Polysorb suture. Skin was closed in all incisions using a subcuticular 4 0 Polysorb suture by both the surgeon and medical assistant secretary. Sterile dressings consisting of Steri-Strips, 2 x 2 gauze, and Tegaderm were then applied. The patient tolerated the procedure well. Sponge instrument and needle counts reported as correct. The patient was transferred to PACU in stable condition.
[2025-06-12] MEDS: Lactated Ringers 1,000 ML 80 ML IVCONT (02:51)
[2025-06-12 03:19] VITALS: BP 107/60; PULSE 86; RESP 18; TEMP 36; O2SAT 96
[2025-06-12] MEDS: oxyCODONE HCl Immed Release 5 MG TABLET PO ×2 (04:46→08:46)
[2025-06-12 07:30] VITALS: BP 116/67; PULSE 72; RESP 14; TEMP 36.3; O2SAT 95
[2025-06-12 07:45] VITALS: BP 183/76; PULSE 103; RESP 16; TEMP 36.9
[2025-06-12 07:51] VITALS: BP 101/57; PULSE 72; RESP 18; TEMP 36.2; O2SAT 97
--- NOTE | 2025-06-12 08:24 | HO.POSTANES ---
Post Anesthesia Evaluation Post Anesthesia Evaluation Date of Service: 06/12/25 Vital Signs: Vital Signs Temp Pulse Resp BP Pulse Ox O2 Del Method 06/12/25 07:51 97.1 F 72 18 101/57 L 97 Room Air 06/12/25 07:45 98.4 F 103 H 16 183/76 H 06/12/25 07:30 97.4 F 72 14 116/67 95 Room Air 06/12/25 03:19 96.8 F 86 18 107/60 96 Room Air 06/11/25 23:30 96.6 F L 90 18 143/70 H 95 Room Air Anesthesia: General Endotracheal-GETA Mental Status: Awake Pain Control: Satisfactory Nausea/Vomiting: None Hydration: Adequate Anesthesia-Related Issues: No Anes. Related Issues
--- NOTE | 2025-06-12 08:33 | PM.PNGS ---
Subjective Subjective Date of Service: 06/12/25 Interval history: Reports feeling comfortable this morning with analgesics- has been getting IV dilaudid for incisional pain. Tolerating solid diet without nausea or vomiting. OOB to bathroom. Physical Exam Vital Signs: Vital Signs: Last Vital Signs Temp 97.1 F 06/12/25 07:51 Pulse 72 06/12/25 07:51 Resp 18 06/12/25 07:51 BP 101/57 L 06/12/25 07:51 Pulse Ox 97 06/12/25 07:51 O2 Del Method Room Air 06/12/25 07:51 O2 Flow Rate 2 06/11/25 19:32 BMI result Body Mass Index 27.1 Resp: Effort & Inspection: normal respiratory effort GI: Inspection: No distended and Yes incision (dressings clean and intact ) Palpation (GI): Soft to palpation, Tenderness to palpation present (GI) (mild incisional) and no guarding Skin: General skin exam: no rashes or lesions noted and no jaundice Objective Data Active Medications Gabapentin (Gabapentin 300 Mg Capsule) 600 mg PO TID [facility] Last Admin: 06/11/25 19:21 Dose: 600 mg Documented By: KAMERON Hydromorphone HCl (Hydromorphone Hcl 0.5 Mg/0.5 Ml Syringe) 0.5 mg IVPUSH Q3H PRN; Protocol PRN Reason: Pain, Severe (Pain Scale 7-10) Last Admin: 06/12/25 06:26 Dose: 0.5 mg Documented By: KAMERON Acetaminophen (Ofirmev) 1,000 mg in 100 mls @ 400 mls/hr IV Q6H PRN PRN Reason: Pain, Mild (Pain Scale 1-3) Last Infusion: 06/12/25 05:06 Dose: Infused Documented By: KAMERON Lactated Ringer's (Lr) 1,000 mls @ 80 mls/hr IVCONT .[id number] [facility] Last Admin: 06/12/25 02:51 Dose: 80 mls/hr Documented By: KAMERON Lorazepam (Lorazepam 0.5 Mg Tablet) 0.5 mg PO BID PRN PRN Reason: Anxiety Last Admin: 06/11/25 19:21 Dose: 0.5 mg Documented By: KAMERON Ondansetron HCl (Ondansetron Hcl 4 Mg/2 Ml Vial) 4 mg IVPUSH QID PRN PRN Reason: Nausea Last Admin: 06/11/25 18:04 Dose: 4 mg Documented By: ALEXANDRA Oxycodone HCl (Oxycodone Hcl Immed Release 5 Mg Tablet) 5 mg PO Q4H PRN PRN Reason: Pain, Moderate(Pain Scale 4-6) Sertraline HCl (Sertraline Hcl 100 Mg Tablet) 200 mg PO DAILY [facility] Last Admin: 06/11/25 08:07 Dose: 200 mg Documented By: ALEXANDRA Sodium Chloride (0.9 % Sodium Chloride Flush 3 Ml Syringe) 3 ml IVFLUSH QSHIFT [facility] Last Admin: 06/11/25 22:10 Dose: 3 ml Documented By: KAMERON Zolpidem Tartrate (Zolpidem Tartrate 5 Mg Tablet) 5 mg PO BEDTIME PRN PRN Reason: Insomnia Last Admin: 06/11/25 22:10 Dose: 5 mg Documented By: KAMERON Labs 06/07/25 15:43 06/08/25 09:39 Procedures Date of Service Date of Service: 06/12/25 Progress Note: A&P Assessment and plan (1) Choledocholithiasis: Status: Acute (2) S/P laparoscopic cholecystectomy: Status: Acute Plan Admitted for choledocolithiasis, acute cholecystitis. S/p ERCP during admission, now POD #1 s/p lap mirlande. Doing well post op. VSS. Abd exam benign with clean dressings and appropriate post op tenderness. Has been requiring IV analgesics. Encouraged use of oral in preparation for dc. Will reassess later this morning for dc to home. patient comfortable with plan. Time Spent With Patient Time: Total time managing care of this patient today ____ minutes. Quality Stroke Does the patient have a stroke diagnosis?: No VTE Prior VTE?: No VTE Risk Level:: Surgical - moderate VTE Device Contraindication: N/A - Device Ordered VTE Drug Contraindication: Treatment Not Indicated
[2025-06-12 11:00] VITALS: BP 124/61; PULSE 90; RESP 16; TEMP 36.4; O2SAT 95
--- NOTE | 2025-06-12 11:52 | MHC.CM.PN ---
PATIENT IS DISCHARGED TO DAY TO HOME SELF CARE. SHE HAS ARRANGED FOR A RIDE HOME.
--- NOTE | 2025-06-12 14:08 | P.DS_ITS ---
DS: Providers Provider Date of Service: 06/12/25 Date of admission: 06/07/25 19:23 Date of discharge: 06/12/25 Primary care physician: Beatriz Ron MD Attending physician on admission: Ivan Momin Consults: 06/07/25 19:23 Consult to Gastroenterology Routine Consulting Provider: [facility] [place] Gastroenterology Services Reason for consultation: Common bile duct stone Attending physician on discharge: Ivan Momin DS: Diagnosis Discharge Diagnosis (1) Choledocholithiasis: Status: Acute (2) S/P laparoscopic cholecystectomy: Status: Acute DS: Summary Hospital Course Hospital Course: HPI AT ADMISSION: Tiarra Hewitt is a 40 year old female with PMH of migraines, kidney stones, asthma presenting with RUQ abd pain. She reports that Sunday night she developed left sided abd pain and back pain that spread across her entire abdomen and then eventually settled in her RUQ. This was associated with nausea, vomiting and chills. She reports she has a history of kidney stones and it felt similar to that pain. She therefore presented to the ED for evaluation. Work up included CBC, BMP, LFTs which was significant for elevated bilirubin of 2.4. No leukocytosis. CT scan abd pelvis was obtained which showed a distended gallbladder and a stone in the proximal CBD. She denies prior episodes of RUQ pain after eating. She continues to have abd pain this morning. She has a surgical history of 2 C sections and diagnostic laparoscopy for hemorrhagic ovarian cyst. HOSPITAL COURSE: The patient was admitted to the surgical service for further treatment of the choledocolithiasis. GI was consulted who felt the stone was small and would pass. She however had continued RUQ abd pain and bilirubin did not improve significantly. She therefore underwent Endoscopic retrograde cholangiopancreatography with sphincterotomy and intra op cholangiogram on 06/09/[address] Troy. She had improvement in her pain following. It was recommended to proceed with laparoscopic cholecystectomy, possible open to prevent recurrence. She was added onto the OR schedule for the following day. On 06/11/25, a laparoscopic cholecystectomy was performed by Dr. Momin without complication. The patient tolerated the procedure well. She had an uncomplicated recovery course. On POD #1, she felt well and was tolerating a solid diet without nausea or vomiting, had good pain control and was ambulating without difficulty. She was hemodynamically stable. Her abdomen was benign with appropriate post op tenderness and clean and intact dressings. She felt ready for discharge. She was discharged to home on 06/12/25 in stable condition. She is to follow up in the office in 1 week. Status at Discharge Functional status at discharge: independent ambulation Overall status at discharge: patient is progressing back to baseline Time Attestation Discharge Coordination Time (in mins): 35 Quality: Safe Use of Opioids Does Pt have an Active Cancer Diagnosis on the Problem List?: No Quality: Stroke Does the patient have a stroke diagnosis?: No Physical Exam Vital Signs: Vital Signs: Last Vital Signs Temp 97.5 F 06/12/25 11:00 Pulse 90 06/12/25 11:00 Resp 16 06/12/25 11:00 BP 124/61 06/12/25 11:00 Pulse Ox 95 06/12/25 11:00 O2 Del Method Room Air 06/12/25 11:00 O2 Flow Rate 2 06/11/25 19:32 BMI result Body Mass Index 27.1 Const: General: comfortable, no acute distress and alert Orientation/consciousness: patient oriented x3 Resp: Effort & Inspection: normal respiratory effort GI: Other: soft, mild incisional tenderness Inspection: No distended and Yes incision (dressings clean and intact) Skin: General skin exam: no rashes or lesions noted and no jaundice Neuro: General: patient oriented x3 and moves all extremities DS: Data Data Completed and Pending Pending studies at discharge: Pending at discharge 06/11/25 15:36 Surgical [PTH] Routine Discharge Plan Discharge Anticipated Discharge Date/Time: 06/12/25 10:51 Patient Disposition: Home, Self-Care Discharge Diagnosis: choledocolithiasis, acute cholecystitis, s/p laparoscopic cholecystectomy Referrals: Ivan Momin MD [Physician, General Surgery] - 1 Week Beatriz Ron MD [Primary Care Provider, Internal Medicine] - 1 Week Discharge Medications: New docusate sodium [Colace] 100 mg capsule 100 mg PO BID PRN (Reason: constipation) Qty: 30 0RF oxycodone 5 mg tablet 5 mg PO Q4H PRN (Reason: pain (scale score 7-10)) Qty: 24 0RF Rx Instructions: Partial Fill upon patient request. Continued cetirizine 10 mg tablet 10 mg PO DAILY sertraline 100 mg tablet 200 mg PO DAILY lorazepam 0.5 mg tablet 0.5 mg PO BID PRN (Reason: Anxiety) gabapentin 300 mg capsule 600 mg PO TID zolpidem 10 mg tablet 10 mg PO BEDTIME cholecalciferol (vitamin D3) [Vitamin D3] 25 mcg (1,000 unit) capsule 25 mcg PO DAILY Zepbound 10 mg/0.5 mL pen injector 10 mg subcut FR Discharge Orders: Discharge Order (Routine); Ordered 06/12/25 Ordered By: Payal Hubbard Diet: Low fat, low cholesterol Activity on Discharge: No heavy lifting Stand Alone Forms: Patient Portal Discharge page Print Language: Tajik Activity Restrictions/Additional Instructions: If the incision area is tender, you may apply an ice pack for short intervals (No more than 20 minutes on, followed by at least 20 minutes off). Do not apply heat. Do not use creams, lotions, or topical antibiotics. Ok to shower. Remove clear dressings 3 days following your procedure. You have steri strips (small white strips) covering your incision- these will fall off ~1 week. No heavy lifting (>10lbs) or strenuous activity! Take Tylenol Extra-strength 1-2 tabs every 6 hours for the first day, then as needed. Oxycodone every 6-8 hours as needed for pain. Colace 100 mg every day as needed for constipation. Follow up in office with Dr. Momin in 1 week. ([phone]) Call Your Doctor If: -Your temperature exceeds 101.5? F -You experience excessive pain or swelling -You have an unexpected reaction to medication -You have excessive bleeding -You experience continued vomiting/nausea -Your incision begins to separate -Your incision shows signs of infection such as increased redness, swelling, excessive pain, drainage (light blood or clear fluid is normal) or heat Care Plan Goals: Return to baseline health and resume normal activities following recovery period. Health Concerns: choledocolithiasis acute cholecystitis Plan of Treatment: s/p ERCP s/p laparoscopic cholecystectomy follow up in the office with Dr. Momin in 1 week Pain control Assessment: Doing well post op Discharge Date/Time: 06/12/25 11:25
== END 2025-06-12 11:25 | disposition home or self-care (01) | DRG 263 ==
LOC: HO.ED 19:36 → HO.EDOVER 19:43 → HO.S3 06-08 13:36
PROVIDERS: Internal Medicine Gastroenterology; Physician Assistant Surgical; Registered Nurse Emergency; Admitting Provider Surgery; Emergency Provider Emergency Medicine; PCP Internal Medicine; Visit Provider Surgery
PROC: 0F798ZZ Dilation of Common Bile Duct, Via Natural or Artificial Opening Endoscopic (ICD-10-PCS; CPT 43260; principal; 2025-06-09 14:50)
PROC: 0FT44ZZ Resection of Gallbladder, Percutaneous Endoscopic Approach (ICD-10-PCS; CPT 47562; principal; 2025-06-11 13:10)
DX: K81.0 Acute cholecystitis (principal); Z79.899 Other long term (current) drug therapy
CPT/HCPCS: 36415; 74176; 80053; 80076; 81003; 84702; 85025; 88304; 99285; J0131; J0330; J1171; J1610; J1805; J1885; J2003; J2250; J2405; J2543; J2704; J2795; J3010; J7120; Q9967

== ENCOUNTER → 2025-06-07 17:47 | Outpatient (BNV) | payer OTHER, SELFPAY | PROVIDERS: Emergency Provider Emergency Medicine; PCP Internal Medicine; Visit Provider Radiology Diagnostic Radiology | DX: N28.1 Cyst of kidney, acquired (principal); N83.202 Unspecified ovarian cyst, left side | CPT/HCPCS: 74176 ==

== ENCOUNTER → 2025-06-07 19:23 | Outpatient (BNV) | payer OTHER, SELFPAY | PROVIDERS: Admitting Provider Surgery; Emergency Provider Emergency Medicine; PCP Internal Medicine; Visit Provider Physician Assistant Surgical | DX: K80.50 Calculus of bile duct without cholangitis or cholecystitis without obstruction (principal); Z90.49 Acquired absence of other specified parts of digestive tract | CPT/HCPCS: 99024; 99232; 99499 ==

== ENCOUNTER → 2025-06-07 19:23 | Outpatient (BNV) | payer OTHER, SELFPAY | PROVIDERS: Admitting Provider Surgery; Emergency Provider Emergency Medicine; PCP Internal Medicine; Visit Provider Internal Medicine Gastroenterology | DX: K80.50 Calculus of bile duct without cholangitis or cholecystitis without obstruction (principal) | CPT/HCPCS: 99223 ==

== ENCOUNTER 2025-06-19 10:11 | Outpatient (AMB) | payer OTHER, SELFPAY ==
--- NOTE | 2025-06-19 10:18 | A.OFFVIS_ITS ---
Vital Signs 06/19/25 10:29 Weight 150 lb BP 107/56 L Blood Pressure Location Rt brachial Position Sitting Pulse 82 Intake Visit Reasons: s/p lap mirlande * Intake Note: Patient here s/p Laparoscopic cholecystectomy. Patient c/o: no concerns. Reports incision healing well. No longer taking rx pain meds. Surgery (): 06-10-2025 Washer Cutter Required: Yes Information Interpreted: clinical only (Ema # [id number]) Accompanied by: Self / Same As Patient Allergies morphine Allergy (Verified 06/19/25 10:28) Rash HPI HPI s/p lap imrlande *: Details: Tiarra Hewitt is a 40 year old female with a recent hospitalization for choledocolithiasis, acute cholecystitis requiring ERCP followed by laparoscopic cholecystectomy on 06/11/25. She tolerated the procedure well and was discharged the following day. She reports feeling well since the surgery. She denies significant pain and is only taking the oxycodone once a day as needed. She is tolerating a solid diet without nausea or vomiting. She is moving her bowels normally. She has no concerns. She denies fevers, chills, diarrhea, constipation, change in skin color. [facility] Surgical History Hx of cholecystectomy History of ERCP H/O laparoscopy History of Social History Household Members: Children Housing: House Do you presently have visiting nurse or other home services: No Patient Tobacco Use Status: Current everyday Tobacco user service: No Review of Systems Const All systems reviewed & are unremarkable except as noted in HPI and below Physical Exam Vital Signs: Last Vital Signs Pulse 82 06/19/25 10:29 BP 107/56 L 06/19/25 10:29 Const General: comfortable, no acute distress and alert Orientation/consciousness: patient oriented x3 Resp Effort & Inspection: normal respiratory effort GI Other: abd soft, nondistended all incisions well approximated and healed without surrounding erythema or edema nontender Palpation (GI): no guarding Percussion: Yes normal to percussion Skin General skin exam: no rashes or lesions noted and no jaundice Neuro General: patient oriented x3 and moves all extremities Results Reviewed Results Reviewed: Gallbladder, cholecystectomy: Chronic cholecystitis with cholesterolosis Assessment & Plan Assessment & Plan (1) S/P laparoscopic cholecystectomy: Code(s): Z90.49 - Acquired absence of other specified parts of digestive tract Category: Surgical Plan 40 year old female with recent hospitalization for choledocolithiasis, acute cholecystitis requiring ERCP and subsequent laparoscopic cholecystectomy on 06/11/25. She tolerated the procedure well and continues to do well post op. Her abdomen is benign with clean and well healed incisions without evidence of infection. She is to continue heavy lifting and strenuous lifting restrictions for another 2 weeks. She can follow up as needed if she develops concerns. She is comfortable with the plan. Medications: Discontinued oxycodone Partial Fill upon patient request. Discontinued Reason: Patient no longer taking 5 mg PO Q4H PRN 24 tabs 0RF pain (scale score 7-10) Coding Level of Care Code Global (58374) Diagnoses S/P laparoscopic cholecystectomy Z90.49
[2025-06-19 10:29] VITALS: BP 107/56; PULSE 82
== END 2025-06-19 11:00 | disposition home or self-care (01) ==
LOC: HO.HGS 10:11
PROVIDERS: PCP Internal Medicine; Visit Provider Physician Assistant Surgical
DX: Z90.49 Acquired absence of other specified parts of digestive tract (principal)
CPT/HCPCS: 99024

== ENCOUNTER → 2025-06-19 10:11 | Outpatient (BNVA) | payer OTHER, SELFPAY | PROVIDERS: PCP Internal Medicine; Visit Provider Physician Assistant Surgical | DX: Z90.49 Acquired absence of other specified parts of digestive tract (principal) | CPT/HCPCS: 99212 ==

== ENCOUNTER 2025-08-14 14:42 | Emergency (ER) | payer OTHER, SELFPAY ==
--- NOTE | ~2025-08-14 | XR_ITS ---
EXAMINATION: XR ELBOW 3 VIEWS RIGHT HISTORY: R elbow pain COMPARISON: There are no prior studies available for comparison. FINDINGS: Three views of the right elbow are submitted. Osseous mineralization is normal. There is no fracture or dislocation. The joint spaces are preserved. The soft tissues are unremarkable. There is no joint effusion. XR/XR elbow RT min 3V IMPRESSION: Unremarkable examination of the right elbow. Electronically signed by: Devendra Mendez MD 08/14/2025 03:36 PM [facility]
[2025-08-14 15:18] VITALS: BP 116/58; PULSE 76; RESP 18; TEMP 36.4; O2SAT 99; BMI 26.9
--- NOTE | 2025-08-14 15:20 | ED_ITS ---
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 Patient states that she has had right elbow pain over the last month that is not improving even with using a prescribed muscle relaxer. Patient denies any other complaints at this time. Related Data Home Medications ?Medication ?Instructions ?Recorded ?Confirmed cetirizine 10 mg tablet 10 mg PO DAILY 06/08/2505/21 cholecalciferol (vitamin D3) 25 25 mcg PO DAILY 06/08/25 mcg (1,000 unit) capsule (Vitamin D3) gabapentin 300 mg capsule 600 mg PO TID 06/08/2506/08 lorazepam 0.5 mg tablet 0.5 mg PO BID PRN Anxiety 06/08/25 sertraline 100 mg tablet 200 mg PO DAILY depressive d isorder 06/08/25 06/08/25 tirzepatide (weight loss) 10 10 mg subcut FR 06/08/25 06/09/25 mg/0.5 mL subcutaneous pen injector (Zepbound) zolpidem 10 mg tablet 10 mg PO BEDTIME insomnia 06/08/25 Previous Rx's ?Medication ?Instructions ?Recorded docusate sodium 100 mg capsule 100 mg PO BID PRN const ipation #30 06/12/25 (Colace) caps naproxen 500 mg tablet 500 mg PO BID 7 days #14 tab s 08/14/25 prednisone 20 mg tablet 40 mg (2 x 20 mg) PO DAILY C OPD 08/14/25 exacerbation 5 days #10 tabs Allergies Allergy/AdvReac Type Severity Reaction Status Date / Time morphine Allergy Rash Verified 08/14/25 15:21 Review of Systems Constitutional: Constitutional: Reports as per HPI Eyes: Eyes: Reports as per HPI ENT: Reports as per HPI Cardiovascular: Cardiovascular: Reports as per HPI Respiratory: Respiratory: Reports as per HPI Gastrointestinal: Gastrointestinal: Reports as per HPI Genitourinary: Genitourinary: Reports as per HPI Musculoskeletal: Musculoskeletal: Reports as per HPI Integumentary/Breasts: Skin/Breast: Reports as per HPI Neurologic: Reports as per HPI Psychiatric: Psychiatric: Reports as per HPI Endocrine: Endocrine: Reports as per HPI Hematologic/Lymphatic: Hematologic/Lymphatic: Reports as per HPI Allergic/Immunologic: Allergic/Immunologic: Reports as per HPI [facility] Past Medical History Attestation statement: The following information was validated with the patient. Source: old records reviewed and nursing notes reviewed Surgical History Hx of cholecystectomy History of ERCP H/O laparoscopy History of Social History Social History Household Members: Children Housing: House Do you presently have visiting nurse or other home services: No Patient Tobacco Use Status: Current everyday Tobacco user Advance Directives: No Advance Directives Information Provided: Yes Do you have a plan to hurt others: No Plan service: No Physical Exam Vital Signs: Vital Signs: Last Vital Signs Temp 97.6 F 08/14/25 20:30 Pulse 76 08/14/25 20:30 Resp 18 08/14/25 20:30 BP 116/58 L 08/14/25 20:30 Pulse Ox 99 08/14/25 20:30 O2 Del Method Room Air 08/14/25 20:30 BMI result Body Mass Index 26.9 Const: General: cooperative, alert and awake Orientation/consciousness: patient oriented x3 HEENT: Head: Yes normal to inspection and Yes atraumatic Ears: hearing grossly normal bilaterally and external ears normal General nose exam: Normal external nose present, no nasal discharge noted and no epistaxis Face and sinus: Yes normal facial exam, No abrasion and No laceration Mouth: Normal oral and palatal mucosa present, no drooling and no muffled voice Eyes: General: appearance normal, both eyes and all related structures Periorbital: periorbital findings normal Eyelids: Yes eyelids normal Conjunctivae: conjunctivae normal Pupils: Equal, round and reactive pupils present EOM: EOMs intact bilaterally Resp: Effort & Inspection: normal respiratory effort and able to speak in complete sentences Neuro: General: patient oriented x3, moves all extremities and CN's II-XI intact bilaterally Cranial nerves: Yes Equal, round and reactive pupils present Cognition (Neuro): normal cognition Extrem: General: Yes full ROM Psych: Appearance: grossly normal Mental Status: mental status grossly normal Attitude: cooperative Course Course Course Narrative: This is a Rapid Medical Exam performed in triage by Carolyne Pace PA-C. Full HPI, ROS and PE to be performed by primary ED provider. 40-year-old female presenting to the ED c/o atraumatic R elbow pain x1 mos. Taking meloxicam without relief PE: No deformity. Mildly tender to palpation. Pain with flexion. Neurovascularly intact Plan: X-ray Medical Decision Making Medical Decision Making MDM Narrative: Patient is a 40 year old female with no reported medical history presenting to the emergency department today with right elbow pain over the last month. Patient's physical exam was as noted in the physical exam portion of this note. Patient's right elbow x-ray showed no acute process. Patient's clinical presentation is most consistent with medial epicondylitis and cubital tunnel. I explained my physical exam findings as well as all test results to the patient. I answered all questions asked by the patient. I stressed the importance of the patient taking her medication as directed (either prescribed or as the over the counter packaging recommends). I stressed the importance of the patient following up with her primary care provider and the orthopedic team. I stressed the importance of the patient returning to the emergency department immediately if her symptoms were to worsen or if she were to develop any dizziness, shortness of breath, difficulty breathing, chest pain, blurry vision, loss of vision, nausea, vomiting, abdominal pain, fever, chills, back pain, or any other complaints. Patient verbalized agreement and understanding with this treatment plan and discharge. Differential Diagnosis Differential Diagnoses: The differential diagnosis associated with the presentation includes Epicondylitis Cubital tunnel Admission/Observation Consideration of admission/observation: Escalation of care including admission/observation considered Patient would have been admitted to the hospital had her work up had any findings where hospital admission was appropriate and her clinical presentation warranted hospital admission. Independent Interpretation I performed an independent interpretation of an: Plain X-Ray Interpretation: My interpretation is in agreement with the radiologist's impression of this imaging study as written below. EXAMINATION: XR ELBOW 3 VIEWS RIGHT HISTORY: R elbow pain COMPARISON: There are no prior studies available for comparison. FINDINGS: Three views of the right elbow are submitted. Osseous mineralization is normal. There is no fracture or dislocation. The joint spaces are preserved. The soft tissues are unremarkable. There is no joint effusion. XR/XR elbow RT min 3V IMPRESSION: Unremarkable examination of the right elbow. Electronically signed by: Devendra Mendez MD 08/14/2025 03:36 PM EST RP Dictated By: Devendra Mendez MD Signed By: Electronically signed by Devendra Mendez MD 08/14/25 1536 Radiology Impression Discussion of test interpretation with radiology: I have reviewed the radiologist's reading. Prescription Management I considered prescription management with: Pain Medication (patient prescribed pain medication) Discharge Plan Discharge Clinical Impression: Cubital tunnel syndrome, Medial epicondylitis Patient Disposition: Home, Self-Care Instructions: Paresthesia (ED) Additional Instructions: IF you are prescribed home medications and/or you are taking over the counter medications at home- it is very important you continue to do so as prescribed / directed unless told otherwise. SI le recetan medicamentos y/o est? tomando medicamentos de venta julia, es muy importante que contin?e haci?ndolo seg?n lo recetado/indicado a menos que le indiquen lo contrario. Follow up with your primary care provider. Return to the emergency department immediately if your symptoms worsen or if you develop any dizziness, shortness of breath, difficulty breathing, chest pain, blurry vision, loss of vision, nausea, vomiting, abdominal pain, fever, chills, back pain, or any other complaints. Arvind?seguimiento?con lao m?dico de atenci?n primaria. Acuda inmediatamente al servicio de urgencias si mariano s?ntomas empeoran o si presenta falta de aliento, dificultad para respirar, dolor tor?cico, mareos, aturdimiento, dolor de espalda, dolor abdominal, fiebre, escalofr?os o cualquier otro s?ntoma. Please see the information below about our Patient Portal. If you are not yet enrolled in the [facility] Patient Portal, you will receive an enrollment email invitation following your visit to any [facility] care setting. You may also self-enroll in the Patient Portal by visiting our website: [email or web address] The following information is required to access the Patient Portal: - Your [facility] Medical Record Number - Your personal home email address (must match what is in your electronic medical record, Registration staff can assist with this) - Name - Date of Capabilities of the Patient Portal: - Message some providers - View upcoming appointments - Access your health summary, medical history, and visit history - View current conditions and allergies - View procedure and lab results - View your medications, including guidelines, side effects, and precautions - Complete pre-appointment questionnaires requested by your provider - Ready summary reports of your office visits and procedures To access the Patient Portal Mobile Daryl, follow these directions: - Search [employer] in the [employer] Store or [employer] - Download the Daryl - Search for [facility] - Enter your login/password Portal del paciente Si usted no esta inscrito en el portal de pacientes de [facility], recibira yuly invitacion de inscripcion despues de lao visita al [facility] o al [facility] via correo electronico. Tambien puede inscribirse voluntariamente en el portal de pacientes visitando nuestra pagina web: [email or web address] La siguiente informacion sera requerida para acceder al portal: - Lao danita de historia medica de [facility] - Lao direccion de correo electronico personal - Nombre - Fecha de nacimiento Capacidades: Las siguientes capacidades estan disponibles en el portal de pacientes: - Enviar mensajes a algunos doctores - Verificar proximas citas - Acceso a lao historial de raffy, registro medico e historial de visitas - Emely las condiciones actuales y alergias emely procedimientos y resultados del laboratorio - Emely mariano medicamentos, incluyendo las pautas - Efectos secundarios y precauciones - Completar o llenar formularios / cuestionarios de - Citas solicitadas por lao doctor - Leer los resumenes de reportes medicos de mariano visitas y procedimientos [place] acceder a la aplicacion movil: - [email or web address] en la [employer] Store o [employer] - Descargue la aplicacion - [facility] - Ingrese alo nombre de usuario / Contrasena Prescriptions: New prednisone 20 mg tablet 40 mg PO DAILY 5 Days Qty: 10 0RF naproxen 500 mg tablet 500 mg PO BID 7 Days Qty: 14 0RF No Action cetirizine 10 mg tablet 10 mg PO DAILY sertraline 100 mg tablet 200 mg PO DAILY lorazepam 0.5 mg tablet 0.5 mg PO BID PRN (Reason: Anxiety) gabapentin 300 mg capsule 600 mg PO TID zolpidem 10 mg tablet 10 mg PO BEDTIME cholecalciferol (vitamin D3) [Vitamin D3] 25 mcg (1,000 unit) capsule 25 mcg PO DAILY Zepbound 10 mg/0.5 mL pen injector 10 mg subcut FR docusate sodium [Colace] 100 mg capsule 100 mg PO BID PRN (Reason: constipation) Qty: 30 0RF Referrals: [facility] [Provider Group] Referral Note: Call to establish and follow up with the orthopedic team. Llamar para concertar yuly jace con el equipo ortopedico y realizar un seguimiento. Stand Alone Forms: Work/School Release Interventions: ED Discharge Assessment Last Done: 08/14/25 20:30 Discharge Date/Time: 08/14/25 20:31 Print Language: Israeli
--- OUTSIDE RECORDS SUMMARY | 2025-08-14 20:22 | XMS_ITS | Data Portability ---
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 On exam ,she has pain on flexion. Straight leg raising test is positive on the left. MRI Lumbar spine shows mild degenerative disc disease at L5-S1 level with as mall disc bulge. Trial of Lumbar epidural steroid injections under fluoroscopic guidance was recommended. The risks and benefits of the procedure were discussed in detail. She wishes to proceed. An appointment has been booked for the same. She needs a spotter driver on the day of the procedure. [email or web address] Not available 06/08/2019 10:39:59 06/17/2019 06/17/2019 Tiarra Hernández is a 34 year old woman with low back pain radiating occasionally into the left lower extremity. On exam ,she has pain on flexion. Straight leg raising test is positive on the left. MRI Lumbar spine shows mild degenerative disc disease at L5-S1 level with as mall disc bulge. =She is here for a trial of Lumbar epidural steroid injections under fluoroscopic guidance . The risks and benefits of the procedure were discussed in detail. She wishes to proceed. She will follow up in four weeks. [email or web address] Not available 06/20/2019 11:16:45 09/01/2019 09/01/2019 Tiarra Hernández is a 34 year old woman with low back pain radiating occasionally into the left lower extremity. On exam ,she has pain on flexion. Straight leg raising test is positive on the left. MRI Lumbar spine shows mild degenerative disc disease at L5-S1 level with as mall disc bulge. Repeat Lumbar epidural steroid injections under fluoroscopic guidance was recommended. The risks and benefits of the procedure were discussed in detail. She wishes to proceed. An appointment has been booked for the same. She needs a spotter driver on the day of the procedure. [email or web address] Not available 09/07/2019 19:32:55 10/21/2019 10/21/2019 Tiarra Hernández is a 34 year old woman with low back pain radiating occasionally into the left lower extremity. On exam ,she has pain on flexion. Straight leg raising test is positive on the left. MRI Lumbar spine shows mild degenerative disc disease at L5-S1 level with as mall disc bulge. She is here for a Lumbar epidural steroid injections under fluoroscopic guidance . The risks and benefits of the procedure were discussed in detail. She wishes to proceed. She will follow up in four weeks. [email or web address] Not available 10/21/2019 14:38:00 01/02/2020 01/02/2020 Tiarra Hernández is a 34 year old woman with low back pain radiating occasionally into the left lower extremity. MRI Lumbar spine shows mild degenerative disc disease at L5-S1 level with as mall disc bulge. This is a follow up after a Lumbar epidural steroid injections under fluoroscopic guidance . She reports 90-100% pain relief which is ongoing with improved function. She can follow up as needed. [email or web address] Not available 01/02/2020 12:44:45 Plan of Treatment Reminders Order Date Submit Date Provider Last Modified By Organization Details Last Modified Time Details Appointments None record ed. Lab None record ed. Referral None record ed. Procedures None record ed. Surgeries None record ed. Imaging None record ed. Medication Orders None record ed. Patient TargetsNo targets recorded. Patient Instructions Encounter Date Encounter Id Patient Instructions Last Modified By Organization Details Last Modified Time 06/06/2019 [id number] She was advised against bed rest lasting longer than four days and to continue activities as tolerated. [email or web address] Not available 06/08/2019 10:40:03 06/17/2019 [id number] She was advised against bed rest lasting longer than four days and to continue activities as tolerated. [email or web address] Not available 06/20/2019 11:14:26 09/01/2019 [id number] She was advised against bed rest lasting longer than four days and to continue activities as tolerated. [email or web address] Not available 09/07/2019 19:31:07 10/21/2019 [id number] She was advised against bed rest lasting longer than four days and to continue activities as tolerated. [email or web address] Not available 10/21/2019 14:36:29 01/02/2020 [id number] She was advised against bed rest lasting longer than four days and to continue activities as tolerated. Telehealth visit: The patient was located at home for this telephone electronic visit and gave consent for this visit to be conducted via telehealth. 15 minutes was spent on this call and greater than 50% of the visit was spent on counseling and coordination of care. [email or web address] Not available 01/02/2020 12:45:00 Reason for Referral None Reported. Problems Name Problem SNOMED Code Status Onset Date Resolution Date Notes Provider Name and Address Organization Details Recorded Time Degeneration of lumbar intervertebral disc 31501824 Active Sandrita kim MD [address] [facility] , [address], [place], [address], [place] [facility] 9 10:31:44 Lumbosacral radiculopathy 0515390 Active Sandrita kim MD [address] [facility] , [address], [place], [address], [place] [facility] 9 10:32:01 Problem Notes None recorded. Procedures Surgical History Date Name Laterality Status Provider Name and Address Organization Details Recorded Time 10/21/19 20 Lumbar Epidural steroid injection under fluoroscopic guidance completed Sandrita Marie MD [address] [facility] , [address], [place], [address], [place] [facility] 10/21/2019 14:37:27 06/17/20 19 Lumbar Epidural steroid injection under fluoroscopic guidance completed Sandrita Marie MD [address] [facility] , [address], [place], [address], [place] [facility] 06/20/2019 11:13:41 section completed Malcolm Navarro [place] [facility] 06/06/2019 10:46:53 Imaging Results None recorded. Procedure Notes None recorded. Medical Equipment None Reported. Allergies Allergen ID Allergen Name Allergen Category Reaction Reaction Severity Criticality Documentation Date Start Date Code Code System Note Provider Name and Address Organization Details Recorded Time 70643 acetamino phen / oxycodone medicatio n itching mild Not available 06/06/2019 29678 3 RxNorm Roxi Gera marquez [facility] 0 11:39:12 05987 morphine medicatio n facial swelling severe Not available 06/06/2019 7052 RxNorm Roxi Bergwell alma [facility] 0 11:38:53 Medications Name Sig Start Date Stop Date Status Note LastModified by Organization Details LastModified Time cyclobenzap rine 10 mg tablet 06/06 completed Not Available Not Available Not Available amoxicillin 500 mg capsule 06/06 completed Not Available Not Available Not Available silver sulfadiazin e 1 % topical cream 06/06 completed Not Available Not Available Not Available prednisone 10 mg tablet 06/06 completed Not Available Not Available Not Available albuterol sulfate 2.5 mg/3 mL (0.083 %) solution for nebulizatio n active Not Available Not Available Not Available trazodone 50 mg tablet 06/06 completed Not Available Not Available Not Available azithromyci n 250 mg tablet 06/06 completed Not Available Not Available Not Available ibuprofen 800 mg tablet 06/06 completed Not Available Not Available Not Available metronidazo le 0.75 % (37.5 mg/5 gram) vaginal gel 06/06 completed Not Available Not Available Not Available prednisone 20 mg tablet JUSTYNA 1 TABLETA POR LA BOCA CADA YANET POR 7 PHILLIPS 06/06 completed Not Available Not Available Not Available sertraline 100 mg tablet TOME DOS TABLETAS POR V?A ORAL TODOS LOS D? active Not Available Not Available No t Available ciprofloxac in 500 mg tablet 06/06 completed Not Available Not Available Not Available sulfamethox azole 800 mg-trimetho prim 160 mg tablet 06/06 completed Not Available Not Available Not Available tramadol 50 mg tablet 06/06 completed Not Available Not Available Not Available baclofen 20 mg tablet 06/06 completed Not Available Not Available Not Available meloxicam 7.5 mg tablet TOME MAGUI TABLETA TODOS LOS D? active Not Available Not Available No t Available lorazepam 0.5 mg tablet TOME MAGUI TABLETA POR V?A ORAL DOS VECES AL D?A MAX 1 TAB CADA DOCE HORAS active Not Available Not Available No t Available tamsulosin 0.4 mg capsule 06/06 completed Not Available Not Available Not Available trazodone 100 mg tablet TOME DOS TABLETAS POR V?A ORAL AL ACOSTARSE CUANDO SEA NECESARIO active Not Available Not Available No t Available benzonatate 100 mg capsule 06/06 completed Not Available Not Available Not Available triamcinolo ne acetonide 0.1 % topical ointment APLICAR A LA PIEL AL AREA AFECTADA DOS VECES AL YANET POR 14 PHILLIPS 06/06 completed Not Available Not Available Not Available ranitidine 150 mg tablet 06/06 completed Not Available Not Available Not Available Banophen 25 mg capsule JUSTYNA 1 CAPSULA POR LA BOCA JUVE VECES AL YANET CUANDO SEA NECESARIO PARA PICOR 06/06 completed Not Available Not Available Not Available ibuprofen 600 mg tablet 06/06 completed Not Available Not Available Not Available levofloxaci n 750 mg tablet 06/06 completed Not Available Not Available Not Available methylpredn isolone 4 mg tablets in a dose pack 06/06 completed Not Available Not Available Not Available albuterol sulfate HFA 90 mcg/actuati on aerosol inhaler active Not Available Not Available Not Available sertraline 50 mg tablet 06/06 completed Not Available Not Available Not Available naproxen 500 mg tablet 06/06 completed Not Available Not Available Not Available hydrocodone 7.5 mg-acetamin ophen 300 mg tablet 06/06 completed Not Available Not Available Not Available Vitals Date Recorded Body height Body mass index (BMI) Body weight Heart rate Oxygen saturation Pain severity - 0-10 verbal numeric rating [Score] - Reported Systolic And Diastolic Provider Name and Address Organization Details Last Updated DateTime 0 154.94 cm 24.6 kg/m2 27747.0 1 g 82 /min 97 % 10 105/51 mm[Hg] Sandrita kim MD [address] [facility] , [address], [facility] [place], [address] 0 15:36:40 Date Recorded Body height Heart rate Oxygen saturation Systolic And Diastolic Provider Name and Address Organization Details Last Updated DateTime 10/21/2019 154.94 cm 79 /min 97 % 101/58 mm[Hg] Roxi Bergwell [place] [facility] 10/21/2019 11:44:17 Date Recorded Body height Body mass index (BMI) Body weight Heart rate Oxygen saturation Systolic And Diastolic Provider Name and Address Organization Details Last Updated DateTime 9 154.94 cm 24.6 kg/m2 54669.0 1 g 87 /min 98 % 106/61 mm[Hg] Malcolm kim [place] [facility] 9 10:27:06 Date Recorded Body height Heart rate Oxygen saturation Pain severity - 0-10 verbal numeric rating [Score] - Reported Systolic And Diastolic Provider Name and Address Organization Details Last Updated DateTime 06/17/2019 154.94 cm 70 /min 98 % 9 103/64 mm[Hg] Sandrita kim MD [facility] [address] [facility] , [address], [place], [address], [place] [facility] 9 14:08:24 Social History Question Answer Notes LastModified by Organizat ion Details LastModified Time Tobacco Smoking Status Current Every Day Smoker Malcolm marquez, [place] [facility] 06/06/2019 10:44:29 Which Illicit Or Recreational Drugs Have You Used? None Information not available 06/06/2019 Education 8 Information n ot available 06/06/2019 Live Alone Or With Others? With Others Information not available 06/06/2019 Marital Status Single Informati on not available 06/06/2019 How Much Tobacco Do You Smoke? 1 PPW Information not available 06/06/2019 Sex: Unknown Functional Status Question Answer Note LastModified by Organization D etails LastModified Time What is your level of alcohol consumption? None Information not available 06/06/2019 Mental Status None recorded. Family History Relationship Description Onset Age of this Age Resolved Age Notes LastModified by Organization Details LastModified Time Mother Arthritis Not avail able 06/06/2019 10:41:44 Mother Diabetes mellitus Not available 05/20 10:43:38 Mother Hypertensive disorder Not available 05/20 10:43:54 Mother Hypothyroidi sm [email or web address] Not available 05/20 10:44:12 Sister Malignant neoplasm of lung [email or web address] Not available 05/20 10:42:31 Medical History Condition Response Anxiety Disorder Y Arthritis Y Kidney Stones Y GERD/Reflux Y Fibromyalgia Y Depression Y Asthma Y Gynecological HistoryNo gynecological history recorded. Obstetrics History GPAL:G 0 P 0 0 0 0 Past Encounters Encounter ID Performer Location Encounter Start Date Encounter Closed Date Diagnosis/Indication Diagnosis SNOMED-CT Code Diagnosis ICD10 Code Diagnosis IMO Codes Diagnosis Note [id number] Sandrita Marie MD [facility] [address] [place] [address] 06/06/2019 10:09:20 06/08/2019 10:46:48 Degeneration of lumbar intervertebral disc 52282860 M51.36 Lumbosacra l radiculopathy 8749427 M54.17 [id number] Sandrita Marie MD [facility] [address] [place] [address] 06/17/2019 13:59:17 06/20/2019 11:30:06 Degeneration of lumbar intervertebral disc 89261699 M51.36 Lumbosacra l radiculopathy 8079231 M54.17 [id number] Sandrita Marie MD [facility] [address] [place] [address] 09/01/2019 15:31:54 09/07/2019 19:33:49 Degeneration of lumbar intervertebral disc 55820518 M51.36 Lumbosacra l radiculopathy 0273611 M54.17 [id number] Sandrita Marie MD [facility] [address] [place] [address] 10/21/2019 11:25:49 10/21/2019 14:40:01 Degeneration of lumbar intervertebral disc 33418726 M51.36 Lumbosacra l radiculopathy 4975660 M54.17 [id number] Sandrita Marie MD [facility] [address] [place] [address] 01/02/2020 10:00:23 01/02/2020 12:45:44 Degeneration of lumbar intervertebral disc 80870135 M51.36 Lumbosacra l radiculopathy 5539979 M54.17 Health Concerns Section Related Observation LastModified by Organization Detai ls LastModified Time None Recorded Concern Status LastModified by Organization Details LastModified Time None Recorded Advance Directives Directive None Recorded Payers Insurance Date Sequence Insurance Name Policy Number Policy Astorga Covered Member ID Astorga Member ID Guarantor Name 05/27/2019 1 [facility] (MEDICAID HMO) Iris Hernández [id number] Iris Hernández 06/06/2019 2 [facility] Iris Hernández [id number] Iris Hernández 06/06/2019 2 [facility] (MEDICAID REPLACEMENT - HMO) Iris Hernández [id number] Iris Hernández 05/30/2019 2 [facility] (MEDICAID REPLACEMENT - HMO) Iris Hernández [id number] Iris Hernández 06/06/2019 2 [facility] (MEDICAID REPLACEMENT - HMO) Iris Hernández [id number] Iris Hernández 01/01/2020 2 [place] Iris Hernández [id number] Iris Hernández 01/01/2020 1 [facility] (MEDICAID REPLACEMENT - HMO) [id number] Iris Heránndez [id number] Iris Hernández 05/27/2019 1 [place] Iris Hernández [id number] Iris Hernández 06/06/2019 2 [facility] Iris Hernández [id number] Iris Hernández Notes Date Note Type Note Provider Name and Address Organization Details Recorded Time 06/06/2019 text/html Tiarra Hernández is a 34 year old woman with complaints of low back pain radiating into left lower extremity. She states she had a slip and fall and started to have severe pain radiating into left lower extremity. She describes the pain as a shooting pain , sharp from her left buttock region to the left leg with numbness, tingling . Current pain level is 5-10/10. Pain is aggravated by standing and walking . Pain is relieved a little with application of heat. She is unable to sleep due to positioning and awakens multiple times at night due to pain. She has no history of bladder or bowel incontinence.MRI Lumbar spine shows mild degenerative disc disease with a small disc protrusion .She has trialed physical therapy at [facility] with some pain benefit. She had a course of medrol dose pack with some pain benefit. Ibuprofen and Naproxen did not help. Sandrita Marie MD [address] [facility] , [facility] [address], [place], [address], [facility] 06/08/2019 11:04:50 06/17/2019 text/html She is here for a trial of lumbar epidural steroid injection under fluoroscopic guidance. Sandrita Marie MD [address] [facility] , [address] [address], [place], [address], [facility] 06/23/2019 08:23:28 09/01/2019 text/html She is here for a follow up. She is unsure of pain benefit. She continues to have low back pain radiating into left lower extremity. She states she had a slip and fall and started to have severe pain radiating into left lower extremity. She describes the pain as a shooting pain , sharp from her left buttock region to the left leg with numbness, tingling . Current pain level is 5-10/10. Pain is aggravated by standing and walking . Pain is relieved a little with application of heat. She is unable to sleep due to positioning and awakens multiple times at night due to pain. She has no history of bladder or bowel incontinence. Sandrita Marie MD [address] [facility] , [facility] [address], [place], [address], [facility] 09/08/2019 20:21:20 10/21/2019 text/html She is here for a lumbar epidural steroid injection under fluoroscopic guidance. Sandrita Marie MD [address] [facility] , [facility] [address], [place], [address], [facility] 10/22/2019 09:57:13 01/02/2020 text/html This is a follow up done through telephone. She had a lumbar epidural steroid injection under fluoroscopic guidance. She reports 90-100% pain benefit which is on going. She states her activity level has increased since the injection. She is doing well overall. Sandrita Marie MD [address] [facility] , [address], [place], [address], [facility] 01/03/2020 10:33:45 OBGyn Episode No OBEpisode recorded.
[2025-08-14 20:30] VITALS: BP 116/58; PULSE 76; RESP 18; TEMP 36.4; O2SAT 99
== END 2025-08-14 20:31 | disposition home or self-care (01) ==
PROVIDERS: Emergency Provider Student in an Organized Health Care Education/Training Program
DX: G56.21 Lesion of ulnar nerve, right upper limb (principal); M77.01 Medial epicondylitis, right elbow; F17.200 Nicotine dependence, unspecified, uncomplicated; Z71.6 Tobacco abuse counseling
CPT/HCPCS: 73080; 99282; 99283

== ENCOUNTER → 2025-08-14 15:22 | Outpatient (BNV) | payer OTHER, SELFPAY | PROVIDERS: Visit Provider Radiology Diagnostic Radiology | DX: M25.521 Pain in right elbow (principal) | CPT/HCPCS: 73080 ==